=== PATIENT | female | born 1955 | race Caucasian/White ===

== ENCOUNTER 2017-08-31 13:03 | Inpatient (IN) | payer SELFPAY ==
[2017-08-31] VITALS (9 sets, daily range): BP systolic 115–179; BP diastolic 62–98
[~2017-08-31] VITALS: Ht 152.4 cm; Wt 60.0 kg
[~2017-08-31 13:03] MED LIST: AMLODIPINE5 MG PO; ATENOLOL50 MG PO; BACTRIM DS1 TAB PO; CELEXA40 M1 PO; CELEXA40 MG OR; CIPROFLOXACN500 MG PO; COMBIVENT IN; DOXYCYCL HYC100 MG PO; FIORICET PO; FLAGYL500 MG OR; HYDROCHLOROT12.5 MG; KLONOPIN1 MG PO; LEVOTHYROXIN100 MCG PO; LISINOPRIL20 MG PO; MEDDOSEPAK PO; NORVASC5 MG PO; NYSTATIN100000 M1 OR; PHENERGAN SUPP RE; PROVENTIL HFA INH; PROZAC40 MG PO; PYRIDIUM200 MG PO; SYNTHROID88 MCG OR; TOPROL XL25 M1; TOPROL XL25 MG OR; TOVIAZ8 MG PO; VESICARE5 MG PO; ZOFRAN ODT4 MG PO
--- NOTE | 2017-08-31 13:05 | NUR ---
PT TO ROOM 13 VIA EMS STRETCHER.
--- NOTE | 2017-08-31 13:30 | NUR ---
PT A&O X 3.
--- NOTE | 2017-08-31 13:30 | NUR ---
INRODUCED SELF TO PT. PT REPORTS WEAKNESS FOR 1 DAY AND A FALL LAST NIGHT. PT REPORTS HEAD PAIN. PERRLA. PT MAEW. LABS COLLECTED, EKG COMPLETED AND PT AWARE OF PROBABLE PLAN OF CARE. WILL CONTINUE TO MONITOR.
[2017-08-31 13:46] LABS: HEMATOCRIT 37.4 % (37.0-47.0); HEMOGLOBIN 13.3 g/dl (12.0-16.0); IMMATURE GRANULOCYTES 2.6 % (0.0-1.0); MEAN CELL VOLUME 83.9 fL CALC (80.0-100.0); MEAN CORPUSCULAR HGB 29.8 pG CALC (26.0-32.0); MEAN CORPUSCULAR HGB CONC 35.6 g/L CALC (32.0-36.0); NEUT# 10.84 thou/uL (2.00-7.15); RED BLOOD COUNT 4.46 mill/uL (4.20-5.60); RED CELL DISTRI WIDTH 12.3 % (11.5-15.5)
--- NOTE | 2017-08-31 14:00 | NUR ---
BED UP TO BEDSIDE COMMODE TO PROVIDE URINE SAMPLE. PT UNSTEADY ON HER FEET AND REPORTS "I JUST DO NOT FEEL RIGHT, FOGGY FEELING". PT PROVIDED URINE SAMPLE AND BACK TO STRETCHER. PT AWARE OF PENDING RESULTS AND WAIT TIME. CALL PRUITT WITHIN REACH.
[2017-08-31 14:02] LABS: ALBUMIN 4.7 g/dL (3.2-5.0); ALKALINE PHOSPHATASE 80 u/l (38-126); BILIRUBIN, TOTAL 0.7 mg/dL (0.0-1.4); BUN 5 mg/dL (8-23); BUN/CREATININE RATIO 10 (12-20 (CALC)); CARBON DIOXIDE 21 mmol/l (22-30); CHLORIDE 85 mmol/l (95-108); CREATININE 0.5 mg/dL (0.5-1.0); ETHYL ALCOHOL 0 mg/dl (0-30); GFR > 60 ML/MIN (>=60 (CALC)); GFR FOR AFR.AMER. > 60 ML/MIN (>=60 (CALC)); SGOT/AST 24 u/l (9-36); SGPT/ALT 28 u/l (11-66); TOTAL PROTEIN 7.6 g/dL (6.3-8.2)
[2017-08-31 14:03] LABS: ANION GAP 16 (6-22 (CALC))
[2017-08-31 14:04] LABS: SODIUM 119 mmol/l (137-146)
[2017-08-31] MEDS ORDERED: DESYREL50 MG PO (14:07)
[2017-08-31] MEDS ORDERED: PROZAC10 MG PO (14:08)
[2017-08-31 14:13] LABS: MYOGLOBIN 65 ng/mL (0 - 62)
[2017-08-31] MEDS ORDERED: ELFOLATE7.5 MG PO (14:20)
[2017-08-31 14:29] LABS: URINE BILIRUBIN - DIPSTICK NEGATIVE (NEGATIVE); URINE BLOOD DIPSTICK SMALL (NEGATIVE); URINE COLOR YELLOW; URINE GLUCOSE - DIPSTICK NEGATIVE (NEGATIVE); URINE KETONE 15 mg/dL (NEGATIVE); URINE LEUK ESTERASE NEGATIVE (NEGATIVE); URINE NITRITE - DIPSTICK NEGATIVE (Negative); URINE PROTEIN - DIPSTICK 100 mg/dL (NEG-TRACE); URINE UROBILINOGEN - DIPSTICK 0.2 E.U./dL (0.2)
[2017-08-31 14:32] LABS: URINE CLARITY CLEAR
[2017-08-31 14:33] LABS: BARBITURATES NEGATIVE (NEGATIVE); COCAINE NEGATIVE (NEGATIVE); METHADONE NEGATIVE (NEGATIVE); OXCYCODONE NEGATIVE (NEGATIVE); TETRAHYDROCANNABIONOL NEGATIVE (NEGATIVE); TRICYLIC ANTIDEPRESSANTS NEGATIVE (NEGATIVE)
[2017-08-31 14:43] LABS: URINE SQUAMOUS EPITHELIAL CELL FEW EPI/hpf (0-FEW); URINE WBC 0-2 WBC/hpf (0-5)
--- NOTE | 2017-08-31 14:45 | NUR ---
PT RESTING IN STRETCHER AND REPORTS CONTINUED 8/10 HEAD PAIN. PT REQUESTING SOMETHING FOR THE PAIN, MD NOTIFIED AND AWAITING NEW ORDERS.
--- NOTE | 2017-08-31 15:30 | NUR ---
PT MEDICATED WITH 650 MG OF TYLENOL FOR HEADACHE. PT AWARE OF NEED FOR ADMISSION, MD AT BEDSIDE TO DISCUSS RESULTS.
--- NOTE | 2017-08-31 16:00 | NUR ---
PT A&O X 3 AND REPORTS HEADACHE IS NOW 6/10, RESP EVEN AND UNLABORED. PT SHOWING NSR ON THE MONITOR AT 70 BPM. WILL CONTINUE TO MONITOR.
--- NOTE | 2017-08-31 16:00 | NUR ---
CONSENT OBTAINED FORM CENTRAL LINE PLACEMENT. PT AWARE OF PLAN FOR ADMISSION. PT DENIES ANY NEEDS AT THIS TIME. WILL CONTINUE TO MONITOR.
--- NOTE | 2017-08-31 16:20 | NUR ---
MD AT BEDSIDE AND TRIPLE LUMEN CENTRAL LINE PLACED. PT TOLERATED WELL.
--- NOTE | 2017-08-31 16:47 | NUR ---
REPORT CALLED TO JULIA GODDARD.
--- NOTE | 2017-08-31 16:55 | NUR ---
Admission Note Report Given to: JULIA CEJA Transported by: Wheelchair X Stretcher Transported with: X Nurse X Transporter X Patent IV O2 X Monorail Car Operator
--- NOTE | 2017-08-31 16:58 | NUR ---
female pt received to ICU bed 1 via stretcher in stable condition; ambulatory with weak/unsteady gait; weight obtained via bed scale; admission assessment completed at this time; pt c/c "I fell last night and today"; pt denies any injuries from fall but admits to hitting back of head; alert and oriented; admits to headache rating 6/10; no n/v/dizziness reported; resp even and unlabored; lungs clear; skin color wnl; ra; hr reg; strong pulses; no edema noted; sr on monitor; bilat knee high medardo hose placed; abd soft with bs present; no bm noted per senior grant writer; admits to voiding without pain or burning; no urine to inspect at this time; #18 in rac saline locked; RIJ TLC patent with 3% Na infusing at 35cc/hr; no redness or edema noted at site; plan of care explained; call light within reach; will continue to monitor
--- NOTE | 2017-08-31 18:05 | NUR ---
awake conversing on cell phone; no distress noted; pt offers no complaints; sr on monitor; iv patent; 3% Na infusing at 35cc/hr; no redness or edema noted at site; bed in loweszst position; call light within reach
[2017-08-31 18:25] LABS: POTASSIUM 3.5 mmol/l (3.5-5.1)
--- NOTE | 2017-08-31 18:45 | NUR ---
Dr Castillo notified of serum Na increase from 119mEq/L to 123mEq/L; orders received and on chart
--- NOTE | 2017-08-31 18:46 | NUR ---
3% saline decreased to 30cc/hr as per orders
--- NOTE | 2017-08-31 19:00 | NUR ---
REPORT FROM Juventino GONZALEZ RN. ASSUMED PT. CARE.
--- NOTE | 2017-08-31 20:05 | NUR ---
PT. AWAKE, ALERT, ORIENTED X3. BLOOD SPECIMENS OBTAINED FROM TRIPLE LUMEN IJ. PT. REMAINS ON 3% SALINE DRIP AT THIS TIME. URINE SPECIMEN OBTAINED AND SENT FOR RANDOM SODIUM LEVEL. CALL LIGHT REMAINS WITHIN REACH. PT. RESPS ARE EVEN AND UNLABORED. SKIN IS WARM AND DRY. C/O 7/10 PAIN TO HEAD AT THIS TIME. NORTH MEDICATE PER ORDERS. NO NEURO DEFICITS NOTED.
[2017-08-31 20:22] LABS: TSH, 3RD GENERATION 22.2 uIU/mL (0.47 - 4.68)
[2017-08-31 20:28] LABS: POTASSIUM 3.7 mmol/l (3.5-5.1)
--- NOTE | 2017-08-31 21:00 | NUR ---
PT. RESTING IN BED WITH EYES CLOSED. RESPS REMAIN EVEN AND UNLABORED. CALL LIGHT REMAINS WITHIN REACH. 3% SODIUM DRIP DECREASED TO 25 CC/HR AT THIS TIME.
--- NOTE | 2017-08-31 22:05 | NUR ---
PT. REMAINS RESTING WITH EYES CLOSED AND SNORING RESPIRATIONS. BLOOD SPECIMEN DRAWN AT THIS TIME FOR REPEAT CHEMISTRY. WILL CONTINUE TO MONITOR.
[2017-08-31 22:23] LABS: POTASSIUM 3.6 mmol/l (3.5-5.1)
--- NOTE | 2017-08-31 23:43 | NUR ---
PT. CONTINUES TO REST WITH EYES CLOSED IN NO DISTRESS. BP IMPROVED AT THIS TIME. CONTINUES WITH 3% SALINE DRIP INFUSING AT 25CC/HR PER PHYSICAN ORDERS. WILL CONTINUE TO MONITOR.
[2017-09-01] VITALS (18 sets, daily range): BP systolic 110–176; BP diastolic 54–86
--- NOTE | 2017-09-01 00:05 | NUR ---
PT. RESTING WITH SNORING RESPIRATIONS AT THIS TIME. EASILY AROUSABLE TO LIGHT VERBAL STIMULI. LAB SPECIMEN OBTAINED AT THIS TIME. CALL LIGHT REMAINS WITHIN REACH. DENIES COMPLAINTS. 3% SALINE DRIP CONTINUES AT 25CC/HR.
[2017-09-01 00:50] LABS: POTASSIUM 3.6 mmol/l (3.5-5.1)
--- NOTE | 2017-09-01 02:14 | NUR ---
PT. CONTINUES TO REST WITH EYES CLOSED AND SNORING RESPIRATIONS. REMAINS ROUSABLE TO LIGHT VERBAL STIMULI. 3% SALINE DRIP CONTINUES TO INFUSE TO RT. IJ CENTRAL LINE. DENIES COMPLAINTS OR NEEDS. RESPS REMAIN EVEN AND UNLABORED. SKIN REMAINS WARM AND DRY. CALL LIGHT REMAINS WITHIN REACH. WILL CONTINUE TO MONITOR.
[2017-09-01 02:45] LABS: POTASSIUM 3.5 mmol/l (3.5-5.1)
--- NOTE | 2017-09-01 03:15 | NUR ---
3% SALINE DRIP DISCONTINUED AT THIS TIME PER PHYSICIAN ORDER PT. SODIUM IS NOW 125. WILL CHANGE FLUIDS TO KVO PER ORDERS. PT. CONTINUES TO REST WITH EYES CLOSED. DENIES COMPLAINT OR CONCERNS. TRIPLE LUMEN FLUSHED AT THIS TIME. CALL LIGHT REMAINS WITHIN REACH.
--- NOTE | 2017-09-01 04:40 | NUR ---
AM LABS DRAWN AT THIS TIME. PT. REMAINS ALERT AND ORIENTED X 3. REMAINS EASILY AROUSABLE. CALL LIGHT REMAINS WITHIN REACH. PT. MEDICATED WITH TYLENOL FOR 01/03 HEADACHE. ASSISTED TO BEDSIDE COMMODE AT THIS TIME. GAIT MUCH IMPROVED. PT. REMAINS SINUS ON THE MONITOR.
--- NOTE | 2017-09-01 06:05 | NUR ---
PT. RESTING ON LT. SIDE AT THIS TIME WITH SNORING RESPIRATIONS. REMAINS SINUS ON THE MONITOR. NO DISTRESS NOTED. REMAINS EASILY AROUSABLE. CALL LIGHT REMAINS WITHIN REACH. WILL CONTINUE TO MONITOR.
[2017-09-01 06:11] LABS: HEMATOCRIT 34.9 % (37.0-47.0); MEAN CELL VOLUME 86.2 fL CALC (80.0-100.0); MEAN CORPUSCULAR HGB 29.6 pG CALC (26.0-32.0); MEAN CORPUSCULAR HGB CONC 34.4 g/L CALC (32.0-36.0); RED BLOOD COUNT 4.05 mill/uL (4.20-5.60); RED CELL DISTRI WIDTH 12.7 % (11.5-15.5)
[2017-09-01 06:23] LABS: ANION GAP 13 (6-22 (CALC)); BUN 13 mg/dL (8-23); BUN/CREATININE RATIO 18 (12-20 (CALC)); CALCULATED LDLCHOLESTEROL 80 mg/dL (62-129 (CALC)); CARBON DIOXIDE 21 mmol/l (22-30); CHLORIDE 96 mmol/l (95-108); CREATININE 0.8 mg/dL (0.5-1.0); GFR > 60 ML/MIN (>=60 (CALC)); GFR FOR AFR.AMER. > 60 ML/MIN (>=60 (CALC)); HDL CHOLESTEROL 90 mg/dL (>=40); MAGNESIUM 2.3 mg/dL (1.6-2.3); POTASSIUM 3.9 mmol/l (3.5-5.1); SODIUM 126 mmol/l (137-146); TOTAL CHOLESTEROL 183 mg/dl (0-199); TOTAL TRIGLYCERIDES 65 mg/dl (30-149); VLDL CHOLESTROL 13 mg/dl (1-41 (CALC))
--- NOTE | 2017-09-01 07:34 | NUR ---
pt noted asleep; easily aroused; offers no complaints; no distress noted; assessment completed at this time; pt alert and oriented; denies pain/ headache at this time; no n/v noted; resp even and unlabored; lungs clear bilat; skin color wnl; ra; hr reg; strong pulses; no edema noted; sr on monitor; bilat medardo hose intact; abd soft with bs present; no bm noted per check writer; no urine to inspect at this time; bsc; #18 flushed and patent to rac; TLC to RIJ flushed and patent; blood return noted from all lumens; dressings cdi; no redness or edema noted at sites; pt admits to feeling better/ increased strength; plan of care/ am meds explained; call light within reach; will continue to monitor
--- NOTE | 2017-09-01 10:00 | NUR ---
pt awake in bed; no distress noted; Dr Castillo at bedside to discuss plan of care; iv intact; sr on monitor; pt offers no complaints; call light within reach; will continue to monitor closely
--- NOTE | 2017-09-01 11:51 | NUR ---
awake; conversing with visitor; no distress noted; pt offers no complaints; iv's intact; sr on monitor; pt deny needs at present; call light within reach; will continue to monitor
--- NOTE | 2017-09-01 14:12 | NUR ---
awake; conversing with family; no distress noted; offers no complaints; sr on monitor; call light within reach; will continue to monitor
--- NOTE | 2017-09-01 16:35 | NUR ---
pt awake in bed; conversing with family; no distress noted; offers complaints of headache rating 7/10; admits tylenol only brings headache down to 5/10; assist to bsc; vss; sr on monitor; will notifiy SAFETY INVESTIGATOR for stronger pain meds; #18 removed from rac with catheter tip intact; TLC flushed and patent; call light within reach; will continue to monitor
--- NOTE | 2017-09-01 18:26 | NUR ---
awake conversing on cell phone; no distress noted; pt admits to pain relief; iv intact; sr on monitor; deny needs; bed in lowest position; call light within reach
--- NOTE | 2017-09-01 19:00 | NUR ---
REPORT FROM Juventino GONZALEZ RN. ASSUMED PT. CARE.
--- NOTE | 2017-09-01 19:45 | NUR ---
PT. AWAKE, ALERT, ORIENTED X 3. SKIN WARM AND DRY. AFEBRILE. MAE. TORREZ. DENIES COMPLAINTS OTHER THAN 6/10 HEADACHE AT THIS TIME. WILL MEDICATE ORDERED. RESPS REMAIN EVEN AND UNLABORED. NO EDEMA NOTED. GOOD PULSES THROUGHOUT. CALL LIGHT REMAINS WITHIN REACH. WILL CONTINUE TO MONITOR.
--- NOTE | 2017-09-01 20:17 | NUR ---
PT. DOWN TO CT SCAN AT THIS TIME.
--- NOTE | 2017-09-01 20:42 | NUR ---
RETURNED FROM CT. UNEVENTFUL TRANSPORT. PT. REMAINS STABLE, SINUS RHYTHM. NO RESP DISTRESS. AMBULATORY TO RESTROOM AT THIS TIME WITH MILDLY UNSTEADY GAIT, NO ASSIST. AMBULATORY BACK TO BED. REPORTS 2/10 HEADACHE AT THIS TIME. PT. UPDATED ON PLAN OF CARE. WILL CONTINUE TO MONITOR.
--- NOTE | 2017-09-01 21:55 | NUR ---
PT. RESTING IN BED AT THIS TIME. AWAKE, WATCHING TELEVISION. STATES HER HEADACHE REMAINS CONTROLLED AT 2/10. DENIES OTHER COMPLAINTS. WILL CONTINUE TO MONITOR.
--- NOTE | 2017-09-01 23:20 | NUR ---
PT. AMBULATORY WITH STEADY GAIT TO RESTROOM. URINE SPECIMEN OBTAINED AND SENT TO LAB FOR TESTING. PT. DENIES COMPLAINTS. LIGHTS DIMMED FOR COMFORT. PT. DENIES OTHER NEEDS AT THIS TIME.
[2017-09-02] VITALS (7 sets, daily range): BP systolic 119–159; BP diastolic 66–90
--- NOTE | 2017-09-02 01:15 | NUR ---
PT. RESTING IN BED IN NO DISTRESS. VITALS REMAIN STABLE. RESPS REMAIN EVEN AND UNLABORED. SKIN WARM AND DRY. CALL LIGHT REMAINS WITHIN REACH. WILL CONTINUE TO MONITOR.
--- NOTE | 2017-09-02 03:05 | NUR ---
PT. RESTING ON LT. SIDE WITH EYES CLOSED AND SNORING RESPIRATIONS. VITALS REMAIN STABLE. PT. REMAINS SINUS-SINUS JODY. PT. VOICES NO COMPLAINTS OR CONCERNS. CALL LIGHT REMAINS WITHIN REACH.
--- NOTE | 2017-09-02 05:02 | NUR ---
THIS RN TO BEDSIDE AT THIS TIME. LAB SPECIMEN DRAWN AND TRIPLE LUMEN FLUSHED. PT. AMBULATORY WITH STEADY GAIT TO AND FROM RESTROOM. NO ASSIST FROM STAFF OTHER THAT TO UNHOOK PATIENT FROM MONITOR AND REPLACE. PT. STATES WITH 4/10 HEADACHE AT THIS TIME. PT. CONTINUES WITH SCANT OOZE TO POSTERIOR HEAD FROM AREA OF POSTERIOR HEAD HEMATOMA FROM FALL AT HOME PRIOR TO ARRIVAL AT ED AND ADMISSION TO HOSPITAL. MINOR BRUISING NOTED INFERIOR TO LT. EAR. PT. STATES WITH MILD DISCOMFORT TO AREA OF POSTERIOR HEAD. PT. REMAINS EASILY AROUSABLE, ALERT, ORIENTED X 3. SKIN REAMAINS WARM AND DRY. PT. REMAINS STABLE ON THE MONITOR. CALL LIGHT REMAINS WITHIN REACH. WILL CONTINUE TO MONITOR.
[2017-09-02 05:36] LABS: HEMOGLOBIN 11.5 g/dl (12.0-16.0); IMMATURE GRANULOCYTES 0.9 % (0.0-1.0); MEAN CELL VOLUME 88.3 fL CALC (80.0-100.0); MEAN CORPUSCULAR HGB 29.9 pG CALC (26.0-32.0); MEAN CORPUSCULAR HGB CONC 33.8 g/L CALC (32.0-36.0); NEUT# 4.46 thou/uL (2.00-7.15); RED BLOOD COUNT 3.85 mill/uL (4.20-5.60); RED CELL DISTRI WIDTH 13.1 % (11.5-15.5)
[2017-09-02 05:46] LABS: ANION GAP 12 (6-22 (CALC)); BUN 12 mg/dL (8-23); BUN/CREATININE RATIO 19 (12-20 (CALC)); CARBON DIOXIDE 22 mmol/l (22-30); CHLORIDE 102 mmol/l (95-108); CREATININE 0.7 mg/dL (0.5-1.0); GFR > 60 ML/MIN (>=60 (CALC)); GFR FOR AFR.AMER. > 60 ML/MIN (>=60 (CALC)); POTASSIUM 3.6 mmol/l (3.5-5.1); SODIUM 132 mmol/l (137-146)
--- NOTE | 2017-09-02 05:59 | NUR ---
PT. UPDATED ON PLAN OF CARE. UPDATED ON MORNING LAB AND CT RESULTS. PT. VERBALIZES UNDERSTANDING OF NEED FOR MRI AND LIKELY FOLLOW UP CT SCANS. PT. STATES DECREASED LEVEL OF ANXIETY AFTER HEARING RESULTS OF SCAN. PT. REMAINS WITH INTERMITTENT COUGH. DENIES SPUTUM PRODUCTION. VSS. WILL CONTINUE TO MONITOR.
--- NOTE | 2017-09-02 07:25 | NUR ---
PT ALERT AND ORIENTED, RESTING IN BED, NO NEURO DEFICITS NOTED, AM ASSESSMENT COMPLETED, SEE INTERVENTIONS, SKIN WARM DRY AND INTACT, RIGHT IJ TLC NOTED WITH DRESSING CLEAN DRY AND INTACT, OFFERS NO NEW COMPLAINTS, AFEBRILE, VS STABLE, DENIES SYNCOPAL EPISODES SINCE ARRIVAL, COMFORT MEASURES PROVIDED, SAFETY MEASURES REINFORCED, CALL PRUITT WITHIN REACH, WILL CONTINUE TO MONITOR.
--- NOTE | 2017-09-02 07:40 | NUR ---
SET UP ASSIST PROVIDED FOR AM MEAL, CALL PRUITT WITHIN REACH
--- NOTE | 2017-09-02 08:20 | NUR ---
PT TO MRI VIA WHEELCAHIAR AFTER AMBULATING TO BATHROOM WITH STRONG STEADY GAIT, NO NEURO DEFICITS NOTED, CALL PRUITT WITHIN REACH
--- NOTE | 2017-09-02 09:40 | NUR ---
pt back from mri, tolerated without incident, call anne within reach.
--- NOTE | 2017-09-02 09:57 | NUR ---
takes am medications w/o incident, call anne within reach, will continue to monitor.
--- NOTE | 2017-09-02 11:22 | NUR ---
pt resting in bed, with eyes closed, no s/s of distress noted, call anne within reach. Will continue to monitor.
[2017-09-02] MEDS ORDERED: SYNTHROID25 MCG PO (11:58)
--- NOTE | 2017-09-02 12:10 | NUR ---
PT TOLERATED AFTERNOON MEAL WELL, AWARE OF PLANNED D/C MEDICATED WITH SYNTHROID ORDERED AND PT EDUCATED REGARDING REASON FOR ADMINISTRATION, EXPECTATIONS AND POSSIBLE SIDE EFFECTS, ALL QUESTIONS ANSWERERED, CALL PRUITT WITHIN REACH, WILL CONTINUE TO MONITOR.
--- NOTE | 2017-09-02 12:25 | NUR ---
R IJ TLC REMOVED INTACT PER PROTOCOL, PRESSURE HELD, PT INSTRUCTED TO LAY SUPINE FOR 30 MIN., NO BLEEDING NOTED, APPLIED GAUZE AND LARGE TRASNPARENT DRESSING, PT INSTRUCTED TO KEEP DRESSING CLEAN AND DRY AND MAY REMOVE AFTER 24 HRS, VERBALZIES UNDERSTANDING, CALL PRUITT WITHIN REACH.
--- NOTE | 2017-09-02 13:19 | NUR ---
D/C INSTRUCTIONS DISCUSSED WITH PATIENT, ALL QUESTIONS ANSWERED, PT PLACED CALL TO SON FOR TRANSPORT HOME. ALL MONITORING EQUIPMET REMOVED PT STATES SHE WASNT TO GET DRESSED, CALL PRUITT WITHIN REACH, P[T APPROPRIATE WITH STRONG STEADY GAIT
--- NOTE | 2017-09-02 13:35 | NUR ---
Discharge instructions given. Patient verbalizes understanding of same. Discharged in stable condition via Wheelchair to Home with family. All belongings sent with pt. SCRIPT SENT WIHT PATIENT WELL
== END 2017-09-02 13:35 | disposition home or self-care (01) | DRG 641 ==
LOC: ED 13:03 → ED-I 14:10 → ED 14:59 → ICU 15:00
PROVIDERS: Emergency Medicine; Nurse Practitioner Family; ADMIT Internal Medicine; ATTEND Internal Medicine
PROC: 02HV33Z Insertion of Infusion Device into Superior Vena Cava, Percutaneous Approach (ICD-10-PCS; principal; 2017-08-31)
PROC: 3E0234Z Introduction of Serum, Toxoid and Vaccine into Muscle, Percutaneous Approach (ICD-10-PCS; 2017-09-01)
DX: E87.1 Hypo-osmolality and hyponatremia (principal); I67.2 Cerebral atherosclerosis; E03.9 Hypothyroidism, unspecified; S00.03XA Contusion of scalp, initial encounter; J44.9 Chronic obstructive pulmonary disease, unspecified; I10 Essential (primary) hypertension; F32.9 Major depressive disorder, single episode, unspecified; F17.210 Nicotine dependence, cigarettes, uncomplicated; W19.XXXA Unspecified fall, initial encounter; F41.9 Anxiety disorder, unspecified; Z23 Encounter for immunization; Z86.73 Personal history of transient ischemic attack (TIA), and cerebral infarction without residual deficits
CPT/HCPCS: Q9967

== ENCOUNTER 2018-12-10 09:46 | Emergency (ER) | payer SELFPAY ==
[~2018-12-10] VITALS: Ht 152.4 cm; Wt 65.0 kg
[~2018-12-10 09:46] MED LIST changes: +DESYREL50 MG PO; +ELFOLATE7.5 MG PO; +PROZAC10 MG PO; +SYNTHROID25 MCG PO
[2018-12-10] MEDS ORDERED: LEXAPRO10 MG PO (10:04)
[2018-12-10] MEDS ORDERED: AMLODIPINE5 MG PO (10:05)
[2018-12-10] MEDS ORDERED: LISINOPRIL20 MG PO (10:05)
[2018-12-10] MEDS ORDERED: KLONOPIN0.5 M1 PO (10:06)
[2018-12-10] MEDS ORDERED: LEVO-T112 MCG PO (10:06)
[2018-12-10 10:45] LABS: IMMATURE GRANULOCYTES 0.6 % (0.0-5.0); MEAN CELL VOLUME 86.7 fL CALC (80.0-100.0); MEAN CORPUSCULAR HGB 28.1 pG CALC (26.0-32.0); MEAN CORPUSCULAR HGB CONC 32.4 g/L CALC (32.0-36.0); NEUT# 5.2 thou/uL (2.00-7.15); RED BLOOD COUNT 3.92 mill/uL (4.20-5.60); RED CELL DISTRI WIDTH 13.9 % (11.5-15.5)
[2018-12-10 11:00] LABS: ANION GAP 13 (6-22 (CALC)); BUN 13 mg/dL (8-23); BUN/CREATININE RATIO 18 (12-20 (CALC)); CARBON DIOXIDE 26 mmol/l (22-30); CHLORIDE 99 mmol/l (95-108); CREATININE 0.7 mg/dL (0.5-1.0); GFR > 60 ML/MIN (>=60 (CALC)); GFR FOR AFR.AMER. > 60 ML/MIN (>=60 (CALC)); POTASSIUM 4.1 mmol/l (3.5-5.1); SODIUM 133 mmol/l (137-146)
[2018-12-10 12:03] VITALS: BP 173/80
== END 2018-12-10 12:09 | disposition home or self-care (01) | DRG 149 ==
LOC: ED 09:46
PROVIDERS: Family Medicine
DX: R42 Dizziness and giddiness (principal); E03.9 Hypothyroidism, unspecified; I10 Essential (primary) hypertension; F17.210 Nicotine dependence, cigarettes, uncomplicated; Z86.73 Personal history of transient ischemic attack (TIA), and cerebral infarction without residual deficits

== ENCOUNTER 2019-06-06 11:06 | Inpatient (IN) | payer SELFPAY ==
[~2019-06-06] VITALS: Ht 152.4 cm; Wt 65.8 kg
[~2019-06-06 11:06] MED LIST changes: +KLONOPIN0.5 M1 PO; +LEVO-T112 MCG PO; +LEXAPRO10 MG PO
--- NOTE | 2019-06-06 11:22 | NUR ---
PT TO ROOM VIA WC FOR BEDSIDE TRIAGE
--- NOTE | 2019-06-06 11:39 | NUR ---
PT ALERT/ORIENTED X3, SATS REMAIN 98 %, STATES SHE HAS BEEN OUT OF HER MEDICATION FOR NEB MACHINE.
[2019-06-06 11:48] LABS: HEMATOCRIT 32.8 % (37.0-47.0); HEMOGLOBIN 10.6 g/dl (12.0-16.0); MEAN CELL VOLUME 83.2 fL CALC (80.0-100.0); MEAN CORPUSCULAR HGB 26.9 pG CALC (26.0-32.0); MEAN CORPUSCULAR HGB CONC 32.3 g/L CALC (32.0-36.0); NEUT# 6.32 thou/uL (2.00-7.15); RED BLOOD COUNT 3.94 mill/uL (4.20-5.60); RED CELL DISTRI WIDTH 13.4 % (11.5-15.5)
[2019-06-06 12:05] LABS: ANION GAP 16 (6-22 (CALC)); BUN 8 mg/dL (8-23); BUN/CREATININE RATIO 11 (12-20 (CALC)); CARBON DIOXIDE 20 mmol/l (22-30); CHLORIDE 97 mmol/l (95-108); CREATININE 0.7 mg/dL (0.5-1.0); GFR > 60 ML/MIN (>=60 (CALC)); GFR FOR AFR.AMER. > 60 ML/MIN (>=60 (CALC)); POTASSIUM 3.7 mmol/l (3.5-5.1); SODIUM 129 mmol/l (137-146)
--- NOTE | 2019-06-06 12:15 | NUR ---
PT STATES FEELING MUCH BETTER AFTER BREATHING TREATMENT AND MEDS.
--- NOTE | 2019-06-06 13:24 | NUR ---
PT RESTING QUIETLY ON STRETCHER, STATES CONTINUES TO BE SOB, GOT UP TO WALK TO BATHROOM AND SATS DROPPED TO 96
[2019-06-06] MEDS ORDERED: PROZAC20 MG PO (13:30)
[2019-06-06] MEDS ORDERED: NEXIUM20 MG PO (13:32)
--- NOTE | 2019-06-06 14:16 | NUR ---
PT DENIES ANY CHEST PAIN EXCEPT WITH INSPIRATION, OR HEAVY COUGHING
--- NOTE | 2019-06-06 14:19 | NUR ---
REPORT GIVEN TO MED SURG FOR CONTINUATION OF CARE.
--- NOTE | 2019-06-06 14:24 | NUR ---
Admission Note Report Given to: sbar printed to floor Transported by: x Wheelchair Stretcher Transported with: x Nurse Transporter x Patent IV O2 x Casing Finisher And Stuffer
--- NOTE | 2019-06-06 14:25 | NUR ---
PT TO [facility] ROOM 291 VIA WHEELCHAIR. ACCOMPANIE BY ER NURSE. PT ABLE TO AMBULATE FROM WHEELCHAIR TO BED. PT IS ALERT AND ORIENTED X3. ADMISSION ASSESSMENT COMPLETED AT THIS TIME. IV TO RAC DISLOGED. CATH TIP INTACT. NEW IV STARTED LEFT HAND. PT TOLERATED WELL. CALL LIGHT IN REACH. ORIENTED TO ROOM AND CALL LIGHT SYSTEM. WILL CONTINUE OT MONITOR
[2019-06-06 14:59] VITALS: BP 189/92
[2019-06-06 15:48] VITALS: BP 173/72
--- NOTE | 2019-06-06 16:00 | NUR ---
BINU CALLE AT BEDSIDE TO SEE PATIENT
[2019-06-06 18:58] VITALS: BP 143/74
--- NOTE | 2019-06-06 19:33 | NUR ---
PATIENT UP IN ROOM-STEADY ON HER FEET-TEARFUL AND ANXIOUS WITH DAUGHTER VISITING. PATIENT STATES THAT SHE IS HAVING SOME DRIBBLING WHEN GETTING UP TO VOID. DENIES ANY BURNING OR PAIN AT THIS TIME. PROVIDED WITH PERIPADS AND MESH UNDERGARMET. STATES THAT SHE DOES HAVE PROBLEMS WITH DEPRESSION AND ANXIETY AND TAKES KLONOPIN AT HOME. PATIENT MEDICATED WITH KLONOPIN 0.5MG PO ORDERED FOR ANXIETY. TELE MONITOR IN PLACE. SALINE LOCK TO LEFT HAND INTACT AND APPEARS HEALTHY AT THIS TIME. SAFETY PRECAUTIONS REINFORED. CALL LIGHT IN REACH. WILL CONT TO MONITOR.
--- NOTE | 2019-06-06 21:02 | NUR ---
PATIENT FEELING BETTER SINCE TAKING THE KLONOPIN EARLIER. RECIEVING NEB TREATMENT AT THIS TIME. TELE MONITOR IN PLACE. IVF NS PATENT AND INFUSING VIA LEFT HAND SITE AT 100CC/HR. SITE IS HEALTHY AT THIS TIME. MEDICATED WITH TRAZADONE ORDERED FOR SLEEP. NON-PRODUCTIVE COUGH NOTED. UPPER AIRWAY CONGESTION NOTED. SAFETY PRECAUTIONS REINFORCED. CALL LIGHT IN REACH. WILL CONT TO MONITOR.
--- NOTE | 2019-06-07 | NUR ---
PATIENT APPEARS SLEEPING WITH EYES CLOSED. RESP ARE EVEN AND UNLABORED. TELE MONITOR IN PLACE. IVF PATENT AND INFUSING VIA LEFT HAND SITE. CALL LIGHT IN REACH. WILL CONT TO MONITOR.
[2019-06-07 01:01] VITALS: BP 142/81
[2019-06-07 04:47] VITALS: BP 159/84
--- NOTE | 2019-06-07 05:32 | NUR ---
PATIENT RESTING IN BED AT THIS TIME WITH NO COMPLAINTS AT THIS TIME. TELE MONITORINPLACE. IVF PATENTANDINFUSING AT 100CC/HR VIA LEFT HAND SITE. SITE REMAINS HEALTHY AT THIS TIME. VOIDING QS IN BR. SAFETY PRECAUTIONS REINFORCED. CALL LIGHT IN REACH. WILL CONT TO MONITOR.
[2019-06-07 06:11] LABS: HEMATOCRIT 31.4 % (37.0-47.0); HEMOGLOBIN 10.4 g/dl (12.0-16.0); IMMATURE GRANULOCYTES 0.7 % (0.0-5.0); MEAN CELL VOLUME 82.6 fL CALC (80.0-100.0); MEAN CORPUSCULAR HGB 27.4 pG CALC (26.0-32.0); MEAN CORPUSCULAR HGB CONC 33.1 g/L CALC (32.0-36.0); NEUT# 9.28 thou/uL (2.00-7.15); RED BLOOD COUNT 3.8 mill/uL (4.20-5.60); RED CELL DISTRI WIDTH 13.5 % (11.5-15.5)
[2019-06-07 06:23] LABS: ANION GAP 13 (6-22 (CALC)); BUN 7 mg/dL (8-23); BUN/CREATININE RATIO 13 (12-20 (CALC)); CARBON DIOXIDE 20 mmol/l (22-30); CHLORIDE 103 mmol/l (95-108); CREATININE 0.6 mg/dL (0.5-1.0); GFR > 60 ML/MIN (>=60 (CALC)); GFR FOR AFR.AMER. > 60 ML/MIN (>=60 (CALC)); SODIUM 133 mmol/l (137-146)
[2019-06-07 07:38] VITALS: BP 147/79
--- NOTE | 2019-06-07 08:00 | NUR ---
REPORT WAS RECEIVED FROM ALMA. ASSESSMENT DONE. PT IS A&O X3. TELE IN PLACE. PT DENIES PAIN AT THIS TIME. IVF INFUSING WELL. PT HAS A DRY COUGH. RESPS EVEN AND UNLABORED. PT DENIES ANY NEEDS AT THIS TIME. CALL LIGHT IN REACH.
[2019-06-07 11:25] VITALS: BP 135/66
[2019-06-07] MEDS ORDERED: NEXIUM 24HR20 MG PO (12:00)
[2019-06-07] MEDS ORDERED: CLONAZEPAM1 M1 PO (12:01)
[2019-06-07] MEDS ORDERED: CLONAZEPAM0.5 M1 PO (12:02)
--- NOTE | 2019-06-07 12:05 | NUR ---
PT IS EATING HER LUNCH WITH NO S/S DISTRESS NOTED. PT IS ALSO VISITING HER FAMLIY IN ROOM. PT DENIES ANY NEEDS AT THIS TIME. CALL LIGHT IN REACH.
[2019-06-07] MEDS ORDERED: PREDNISONE10 MG PO (12:45)
[2019-06-07] MEDS ORDERED: LEVAQUIN750 MG PO (12:45)
[2019-06-07] MEDS ORDERED: PROVENTIL0.083 % IN (12:45)
[2019-06-07] MEDS ORDERED: SPIRIVA RE2.5 MCG/AC IN (12:45)
--- NOTE | 2019-06-07 14:41 | NUR ---
Discharge instructions given. Patient verbalizes understanding of same. Discharged in stable condition via Wheelchair to Home with family. All belongings sent with pt.
== END 2019-06-07 14:41 | disposition home or self-care (01) | DRG 191 ==
LOC: ED 11:06 → ED-I 12:33 → ED 12:46 → MS2 12:47
PROVIDERS: Family Medicine; Nurse Practitioner Family; ADMIT Internal Medicine; ATTEND Internal Medicine
DX: J44.1 Chronic obstructive pulmonary disease with (acute) exacerbation (principal); E87.1 Hypo-osmolality and hyponatremia; R07.89 Other chest pain; I10 Essential (primary) hypertension; E03.9 Hypothyroidism, unspecified; F32.9 Major depressive disorder, single episode, unspecified; K21.9 Gastro-esophageal reflux disease without esophagitis; F41.9 Anxiety disorder, unspecified; F17.210 Nicotine dependence, cigarettes, uncomplicated; T43.205A Adverse effect of unspecified antidepressants, initial encounter; Z86.73 Personal history of transient ischemic attack (TIA), and cerebral infarction without residual deficits; Z88.0 Allergy status to penicillin

== ENCOUNTER 2019-11-09 | Emergency (ER) | payer SELFPAY ==
[~2019-11-09] MED LIST changes: +CLONAZEPAM0.5 M1 PO; +CLONAZEPAM1 M1 PO; +LEVAQUIN750 MG PO; +NEXIUM 24HR20 MG PO; +NEXIUM20 MG PO; +PREDNISONE10 MG PO; +PROVENTIL0.083 % IN; +PROZAC20 MG PO; +SPIRIVA RE2.5 MCG/AC IN
[2019-11-09] MEDS ORDERED: SYMBICORT1 AE1 IN (18:13)
[2019-11-09 19:04] LABS: HEMATOCRIT 27.3 % (37.0-47.0); HEMOGLOBIN 8.6 g/dl (12.0-16.0); IMMATURE GRANULOCYTES 1.2 % (0.0-5.0); MEAN CELL VOLUME 78.2 fL CALC (80.0-100.0); MEAN CORPUSCULAR HGB 24.6 pG CALC (26.0-32.0); MEAN CORPUSCULAR HGB CONC 31.5 g/dL CAL (32.0-36.0); NEUT# 5.99 thou/uL (2.00-7.15); RED BLOOD COUNT 3.49 mill/uL (4.20-5.60); RED CELL DISTRI WIDTH 14.9 % (11.5-15.5)
[2019-11-09 19:37] LABS: ANION GAP 10 (6-22 (CALC)); BUN 12 mg/dL (8-23); BUN/CREATININE RATIO 17 (12-20 (CALC)); CHLORIDE 97 mmol/l (95-108); CREATININE 0.7 mg/dL (0.5-1.0); GFR > 60 ML/MIN (>=60 (CALC)); GFR FOR AFR.AMER. > 60 ML/MIN (>=60 (CALC)); POTASSIUM 3.8 mmol/l (3.5-5.1); SODIUM 130 mmol/l (137-146)
[2019-11-09 19:39] LABS: CARBON DIOXIDE 27 mmol/l (22-30)
--- NOTE | 2019-11-12 15:48 | NUR ---
Call made to [facility] [address] [phone], spoke with Amalia, patient's nurse Sariah was in a room but would let her know when fax came through. Faxed results to [phone] with confirmation of receipt; called Amalia to confirm results were received.
== END 2019-11-09 20:35 | disposition short-term general hospital (02) | DRG 916 ==
PROVIDERS: Family Medicine
PROC: 0BH17EZ Insertion of Endotracheal Airway into Trachea, Via Natural or Artificial Opening (ICD-10-PCS; principal; 2019-11-09)
PROC: 5A1935Z Respiratory Ventilation, Less than 24 Consecutive Hours (ICD-10-PCS; 2019-11-09)
PROC: 05HM33Z Insertion of Infusion Device into Right Internal Jugular Vein, Percutaneous Approach (ICD-10-PCS; 2019-11-09)
PROC: 0T9B70Z Drainage of Bladder with Drainage Device, Via Natural or Artificial Opening (ICD-10-PCS; 2019-11-09)
DX: T78.3XXA Angioneurotic edema, initial encounter (principal); R94.31 Abnormal electrocardiogram [ECG] [EKG]; I10 Essential (primary) hypertension; E03.9 Hypothyroidism, unspecified; J45.909 Unspecified asthma, uncomplicated; F17.200 Nicotine dependence, unspecified, uncomplicated; Z86.73 Personal history of transient ischemic attack (TIA), and cerebral infarction without residual deficits; Z20.828 Contact with and (suspected) exposure to other viral communicable diseases

== ENCOUNTER 2019-12-08 | Emergency (ER) | payer SELFPAY ==
[~2019-12-08] MED LIST changes: +SYMBICORT1 AE1 IN
[2019-12-08 10:18] LABS: HEMOGLOBIN 9.4 g/dl (12.0-16.0); IMMATURE GRANULOCYTES 0.8 % (0.0-5.0); MEAN CELL VOLUME 82.2 fL CALC (80.0-100.0); MEAN CORPUSCULAR HGB 25.8 pG CALC (26.0-32.0); MEAN CORPUSCULAR HGB CONC 31.3 g/dL CAL (32.0-36.0); NEUT# 7.88 thou/uL (2.00-7.15); RED BLOOD COUNT 3.65 mill/uL (4.20-5.60); RED CELL DISTRI WIDTH 17.5 % (11.5-15.5)
[2019-12-08] MEDS ORDERED: HYDRALAZINE10 MG PO (10:34)
[2019-12-08] MEDS ORDERED: COREG25 MG PO (10:34)
[2019-12-08] MEDS ORDERED: ALDACTONE25 MG PO (10:35)
[2019-12-08] MEDS ORDERED: ISOSORB DIN30 MG PO (10:35)
[2019-12-08] MEDS ORDERED: TRAZODONE100 MG PO (10:36)
[2019-12-08] MEDS ORDERED: NORVASC5 M1 PO (10:36)
[2019-12-08 10:38] LABS: ACT PARTIAL THROMBO TIME 24.5 SECONDS (20.0-32.5); ALBUMIN 3.8 g/dL (3.2-5.0); ALKALINE PHOSPHATASE 62 u/l (38-126); BUN 13 mg/dL (8-23); BUN/CREATININE RATIO 12 (12-20 (CALC)); CARBON DIOXIDE 25 mmol/l (22-30); CHLORIDE 94 mmol/l (95-108); CREATININE 1.1 mg/dL (0.5-1.0); GFR 50 ML/MIN (>=60 (CALC)); GFR FOR AFR.AMER. > 60 ML/MIN (>=60 (CALC)); PROTHROMBIN TIME 10.2 SECONDS (9.0-12.5); SGOT/AST 18 u/l (9-36); SODIUM 126 mmol/l (137-146); TOTAL PROTEIN 6.5 g/dL (6.3-8.2)
[2019-12-08] MEDS ORDERED: VISTARIL 50MG C50 M1 PO (10:38)
[2019-12-08 10:44] LABS: ANION GAP 12 (6-22 (CALC)); BILIRUBIN, TOTAL 0.3 mg/dL (0.0-1.4); POTASSIUM 5.3 mmol/l (3.5-5.1)
== END 2019-12-08 11:00 | disposition short-term general hospital (02) | DRG 311 ==
PROVIDERS: Family Medicine
DX: I20.0 Unstable angina (principal); I10 Essential (primary) hypertension; E03.9 Hypothyroidism, unspecified; F17.200 Nicotine dependence, unspecified, uncomplicated; Z86.73 Personal history of transient ischemic attack (TIA), and cerebral infarction without residual deficits

== ENCOUNTER 2020-02-15 22:37 | Emergency (ER) | payer SELFPAY ==
[~2020-02-15] VITALS: Ht 152.4 cm; Wt 68.1 kg
[~2020-02-15 22:37] MED LIST changes: +ALDACTONE25 MG PO; +COREG25 MG PO; +HYDRALAZINE10 MG PO; +ISOSORB DIN30 MG PO; +NORVASC5 M1 PO; +TRAZODONE100 MG PO; +VISTARIL 50MG C50 M1 PO
[2020-02-15] MEDS ORDERED: LEVOTHYROXIN112 MC1 PO (23:11)
[2020-02-15] MEDS ORDERED: ASPIRINCHW 81MG PO (23:12)
[2020-02-15] MEDS ORDERED: FLUOXETINE HCL40 MG PO (23:12)
[2020-02-15] MEDS ORDERED: NEXIUM40 M1 PO (23:13)
[2020-02-15] MEDS ORDERED: HYDROCO/APAP1 TA9 PO (23:44)
[2020-02-16] VITALS: BP 131/70
== END 2020-02-16 00:25 | disposition home or self-care (01) | DRG 563 ==
LOC: ED 22:37
PROC: 2W3CX1Z Immobilization of Right Lower Arm using Splint (ICD-10-PCS; principal; 2020-02-15)
DX: S52.501A Unspecified fracture of the lower end of right radius, initial encounter for closed fracture (principal); S52.601A Unspecified fracture of lower end of right ulna, initial encounter for closed fracture; I11.0 Hypertensive heart disease with heart failure; I50.9 Heart failure, unspecified; I42.9 Cardiomyopathy, unspecified; F17.200 Nicotine dependence, unspecified, uncomplicated; W01.0XXA Fall on same level from slipping, tripping and stumbling without subsequent striking against object, initial encounter; Y92.009 Unspecified place in unspecified non-institutional (private) residence as the place of occurrence of the external cause; Z86.73 Personal history of transient ischemic attack (TIA), and cerebral infarction without residual deficits

== ENCOUNTER 2020-09-28 10:45 | Emergency (ER) | payer BC ==
[~2020-09-28] VITALS: Ht 152.4 cm; Wt 68.0 kg
[~2020-09-28 10:45] MED LIST changes: +ASPIRINCHW 81MG PO; +FLUOXETINE HCL40 MG PO; +HYDROCO/APAP1 TA9 PO; +LEVOTHYROXIN112 MC1 PO; +NEXIUM40 M1 PO
[2020-09-28] MEDS ORDERED: ISOSORBIDE MONO30 MG PO (11:09)
[2020-09-28] MEDS ORDERED: TRAZODONE100 MG PO (11:10)
[2020-09-28] MEDS ORDERED: CLONAZEPAM0.5 M1 PO (11:11)
[2020-09-28] MEDS ORDERED: CYCLOBENZAPRINE10 MG PO (12:14)
[2020-09-28] MEDS ORDERED: NAPROXEN500 MG PO (12:14)
[2020-09-28 12:16] LABS: URINE BILIRUBIN - DIPSTICK NEGATIVE (NEGATIVE); URINE BLOOD DIPSTICK NEGATIVE (NEGATIVE); URINE COLOR YELLOW; URINE GLUCOSE - DIPSTICK NEGATIVE (NEGATIVE); URINE KETONE NEGATIVE (NEGATIVE); URINE LEUK ESTERASE NEGATIVE (NEGATIVE); URINE NITRITE - DIPSTICK NEGATIVE (Negative); URINE PH 7.5 (4.5-8.0); URINE PROTEIN - DIPSTICK NEGATIVE (NEG-TRACE); URINE UROBILINOGEN - DIPSTICK 0.2 E.U./dL (0.2)
[2020-09-28 12:34] VITALS: BP 139/87
== END 2020-09-28 12:34 | disposition home or self-care (01) | DRG 552 ==
LOC: ED 10:45
PROVIDERS: Emergency Medicine
DX: M47.816 Spondylosis without myelopathy or radiculopathy, lumbar region (principal); I11.0 Hypertensive heart disease with heart failure; I50.9 Heart failure, unspecified; E03.9 Hypothyroidism, unspecified; J45.909 Unspecified asthma, uncomplicated; I42.9 Cardiomyopathy, unspecified; F32.9 Major depressive disorder, single episode, unspecified; F17.200 Nicotine dependence, unspecified, uncomplicated; Z86.73 Personal history of transient ischemic attack (TIA), and cerebral infarction without residual deficits

== ENCOUNTER 2020-10-03 12:28 | Observation (INO) | payer BC ==
[~2020-10-03] VITALS: Ht 152.4 cm; Wt 69.6 kg
[~2020-10-03 12:28] MED LIST changes: +CYCLOBENZAPRINE10 MG PO; +ISOSORBIDE MONO30 MG PO; +NAPROXEN500 MG PO
--- NOTE | 2020-10-03 12:30 | NUR ---
TO ROOM VIA WHEELCHAIR.
--- NOTE | 2020-10-03 12:45 | NUR ---
PT REPORTS HAVING TAKEN THIS LIST OF MEDICATIONS THE FIRST TIME TODAY AT 0530 THEN ACCIDENTALLY TAKEN AGAIN AT 1130. CARVEDILOL 6.25 MG, ISOSORBIDE 30MG, LEVOTHYROXINE 112 MCG, PROZAC 80MG, AMLODIPINE 10MG.
--- NOTE | 2020-10-03 13:09 | NUR ---
POISON CONTROL NOTIFIED, SPOKE WITH TROY, HE STATES TO MONITER PT FOR 2 HOURS WITH BLOOD PRESSURE, AND IF SHE LIKES HE CAN GIVE HER A CALL A COUPLE OF TIMES THIS AFTERNOON FROM HOME.
[2020-10-03 13:31] LABS: HEMATOCRIT 32.3 % (37.0-47.0); HEMOGLOBIN 10.6 g/dl (12.0-16.0); IMMATURE GRANULOCYTES 0.8 % (0.0-5.0); MEAN CELL VOLUME 85.2 fL CALC (80.0-100.0); MEAN CORPUSCULAR HGB CONC 32.8 g/dL CAL (32.0-36.0); NEUT# 8.93 thou/uL (2.00-7.15); RED BLOOD COUNT 3.79 mill/uL (4.20-5.60)
[2020-10-03 13:44] LABS: ALBUMIN 3.8 g/dL (3.2-5.0); ALKALINE PHOSPHATASE 72 u/l (38-126); BUN 12 mg/dL (8-23); BUN/CREATININE RATIO 18 (12-20 (CALC)); CARBON DIOXIDE 28 mmol/l (22-30); CHLORIDE 89 mmol/l (95-108); CREATININE 0.7 mg/dL (0.5-1.0); GFR > 60 ML/MIN (>=60 (CALC)); GFR FOR AFR.AMER. > 60 ML/MIN (>=60 (CALC)); SODIUM 122 mmol/l (137-146); TOTAL PROTEIN 6.4 g/dL (6.3-8.2)
[2020-10-03 13:54] LABS: ANION GAP 8 (6-22 (CALC)); BILIRUBIN, TOTAL 0.7 mg/dL (0.0-1.4); SGOT/AST 41 u/l (9-36)
[2020-10-03 13:56] LABS: MYOGLOBIN 21 ng/mL (0 - 62)
--- NOTE | 2020-10-03 14:00 | NUR ---
RESTING QUIETLY, RESPS EVEN AND UNLABORED ON ROOM AIR, VSS, MONITORS ATTACHED. DENIES NEEDS AT THIS TIME.
--- NOTE | 2020-10-03 15:00 | NUR ---
MD AT BEDSIDE TO DISCUSS RESULTS AND POC.
--- NOTE | 2020-10-03 15:30 | NUR ---
COVID SWAB COLLECTED, ISOLATION PRECAUTIONS INITIATED.
[2020-10-03 15:38] LABS: URINE BILIRUBIN - DIPSTICK NEGATIVE (NEGATIVE); URINE BLOOD DIPSTICK NEGATIVE (NEGATIVE); URINE COLOR YELLOW; URINE GLUCOSE - DIPSTICK NEGATIVE (NEGATIVE); URINE KETONE NEGATIVE (NEGATIVE); URINE LEUK ESTERASE NEGATIVE (NEGATIVE); URINE NITRITE - DIPSTICK NEGATIVE (Negative); URINE PROTEIN - DIPSTICK NEGATIVE (NEG-TRACE); URINE SPECIFIC GRAVITY 1.015; URINE UROBILINOGEN - DIPSTICK 0.2 E.U./dL (0.2)
[2020-10-03 16:10] LABS: TSH, 3RD GENERATION 4.64 uIU/mL (0.47 - 4.68)
[2020-10-03] MEDS ORDERED: GABAPENTIN100 MG PO (16:11)
[2020-10-03] MEDS ORDERED: KETOROLAC10 MG PO (16:12)
[2020-10-03] MEDS ORDERED: METHOCARBAMOL500 MG PO (16:13)
--- NOTE | 2020-10-03 17:00 | NUR ---
Shabana MURCIA APRN AT BEDSIDE.
--- NOTE | 2020-10-03 17:00 | NUR ---
REPORT CALLED TO ROBB DUMONT.
--- NOTE | 2020-10-03 17:15 | NUR ---
TO MED SURG VIA STRETCHER, TELE MONITOR IN PLACE.
[2020-10-03 17:37] VITALS: BP 154/79
--- NOTE | 2020-10-03 17:42 | NUR ---
REPORT RECEIVED FROM MAU IN ED, PT TRANSPORTED TO UNIT VIA STRETCHER @ 1726,ALERT AND ORIENTED X 4, C/O SHARP PAIN FROM LEFT LOWER BACK DOWN TO LEFT LEG @ 7/10, TELE MONITOR IN PLACE, # [address] G[address]HETER IN PLACE TO RAC. EDUCATED ON FALL PRECAUTION, INFECTION CONTROL AND RISK OF BLOOD CLOTS, DIANNA HOSE APPLIED. ORIENTED TO ROOM AND CALL PRUITT, WILL CONTINUE TO MONITOR.
[2020-10-03 19:00] VITALS: BP 139/63
[2020-10-04] VITALS: BP 138/65
[2020-10-04 04:00] VITALS: BP 139/63
--- NOTE | 2020-10-04 04:05 | NUR ---
LATE ENTRY FOR 10/03/20 @ 1999 PT RESTING IN ROOM AT THIS TIME. P COMPLAINS OF 10/ PAIN TO LEFT SIDE LOWER BACK SCIATICA. THIS NURSE COMMUNICATED WITH PHYSICIAN WHO INDICATED HE WOULD REVIEW HER MEDICATIONS AND WOULD PRESCRIBE ACCORDINGLY. NO OTHER COMPLAINTS VOICED. NO S/S OF DISTRESS.
--- NOTE | 2020-10-04 04:08 | NUR ---
LATE ENTRY FOR 09/24/20 @ 0000 PT DOING WELL AT THIS TIME. PHYSICIAN REVIEWED MEDS AND ORDERED HOME MEDS T CONTINUE. TORADOL 15MG IV AND ROBAXIN 500MG PO ADMINSTERED AROUND 2230. MEDICATIONS EFFECTIVE FOR PAIN AND MUSCLE SPASMS. WILL MONITOR.
--- NOTE | 2020-10-04 04:09 | NUR ---
PT CONTINUES TO REST QUIETLY IN BED WITH EYES CLOSED. NO COMPLAINTS VOICED AT THIS TIME. TELE CONTINUES SR. WILL MONITOR
[2020-10-04 06:14] LABS: HEMATOCRIT 32.8 % (37.0-47.0); HEMOGLOBIN 10.7 g/dl (12.0-16.0); MEAN CELL VOLUME 85.9 fL CALC (80.0-100.0); MEAN CORPUSCULAR HGB CONC 32.6 g/dL CAL (32.0-36.0); RED BLOOD COUNT 3.82 mill/uL (4.20-5.60); RED CELL DISTRI WIDTH 13.2 % (11.5-15.5)
[2020-10-04 06:27] LABS: ANION GAP 9 (6-22 (CALC)); BUN 7 mg/dL (8-23); BUN/CREATININE RATIO 14 (12-20 (CALC)); CALCULATED LDLCHOLESTEROL 123 mg/dL (62-129 (CALC)); CARBON DIOXIDE 27 mmol/l (22-30); CHLORIDE 99 mmol/l (95-108); CHOLESTEROL HDL RATIO 3.7 (<4.4 (CALC)); CREATININE 0.5 mg/dL (0.5-1.0); GFR > 60 ML/MIN (>=60 (CALC)); GFR FOR AFR.AMER. > 60 ML/MIN (>=60 (CALC)); HDL CHOLESTEROL 56 mg/dL (>=40); MAGNESIUM 1.9 mg/dL (1.6-2.3); POTASSIUM 3.3 mmol/l (3.5-5.1); TOTAL CHOLESTEROL 210 mg/dl (0-199); TOTAL TRIGLYCERIDES 158 mg/dl (30-149); VLDL CHOLESTROL 32 mg/dl (1-41 (CALC))
[2020-10-04 06:42] LABS: SODIUM 132 mmol/l (137-146)
[2020-10-04 08:00] VITALS: BP 154/77
--- NOTE | 2020-10-04 08:00 | NUR ---
REPORT RECEIVED FROM AGNIESZKA. PT SITTING UP IN BED, HIGH FOWLERS; ALERT AND OREINTED. AMBULATED TO BATHROOM WITH STAND BY ASSIST. C/O 10/10 SCIATICA PAIN TO RIGHT BACK. RESPIRATIONS EVEN AND UNLABORED ON ROOM AIR; LUNGS ARE CLEAR. IV FLUIDS INFUSING AT 75ML/HR; IV SITE APPEARS HEALTHY. POC REVIEWED; PT ENCOURAGED TO VERBALIZE CONCERNS; STATES UNDERSTANDING. SAFETY MEASURES IN PLACE. CALL LIGHT WITHIN REACH.
--- NOTE | 2020-10-04 09:20 | NUR ---
DR. RO AT BEDSIDE FOR EVAL. TORADOL GIVEN WITH AM MEDS FOR SCIATICA PAIN; CARVEDILOL HELD FOR LOW HEART RATE.
[2020-10-04 11:39] VITALS: BP 146/81
[2020-10-04] MEDS ORDERED: SOD CHLORIDE1 G2 PO (12:51)
--- NOTE | 2020-10-04 13:28 | NUR ---
IV site discontinued, cath intact. No edema , no redness, voices no discomfort.
--- NOTE | 2020-10-04 13:43 | NUR ---
Discharge instructions given. Patient verbalizes understanding of same. Discharged in stable condition via Wheelchair to Home with spouse. All belongings sent with pt.
== END 2020-10-04 13:47 | disposition home or self-care (01) | DRG 918 ==
LOC: ED 12:28 → MS2 15:37
PROVIDERS: Emergency Medicine; Nurse Practitioner; ADMIT Internal Medicine; ATTEND Internal Medicine
DX: T50.911A Poisoning by multiple unspecified drugs, medicaments and biological substances, accidental (unintentional), initial encounter (principal); E87.1 Hypo-osmolality and hyponatremia; I42.9 Cardiomyopathy, unspecified; E87.6 Hypokalemia; R00.1 Bradycardia, unspecified; I11.0 Hypertensive heart disease with heart failure; I50.9 Heart failure, unspecified; E03.9 Hypothyroidism, unspecified; M47.816 Spondylosis without myelopathy or radiculopathy, lumbar region; J45.909 Unspecified asthma, uncomplicated; F32.9 Major depressive disorder, single episode, unspecified; F17.210 Nicotine dependence, cigarettes, uncomplicated; Y92.009 Unspecified place in unspecified non-institutional (private) residence as the place of occurrence of the external cause; Z86.73 Personal history of transient ischemic attack (TIA), and cerebral infarction without residual deficits; Z20.822 Contact with and (suspected) exposure to COVID-19
CPT/HCPCS: G0378; J1650

== ENCOUNTER 2020-10-11 05:45 | Emergency (ER) | payer BC ==
[~2020-10-11] VITALS: Ht 152.4 cm; Wt 68.0 kg
[~2020-10-11 05:45] MED LIST changes: +GABAPENTIN100 MG PO; +KETOROLAC10 MG PO; +METHOCARBAMOL500 MG PO; +SOD CHLORIDE1 G2 PO
[2020-10-11 07:16] VITALS: BP 183/92
== END 2020-10-11 07:20 | disposition home or self-care (01) | DRG 552 ==
LOC: ED 05:45
DX: M47.26 Other spondylosis with radiculopathy, lumbar region (principal); I42.9 Cardiomyopathy, unspecified; E03.9 Hypothyroidism, unspecified; I11.0 Hypertensive heart disease with heart failure; I50.9 Heart failure, unspecified; J45.909 Unspecified asthma, uncomplicated; F32.9 Major depressive disorder, single episode, unspecified; F17.210 Nicotine dependence, cigarettes, uncomplicated; Z86.73 Personal history of transient ischemic attack (TIA), and cerebral infarction without residual deficits

== ENCOUNTER 2020-11-03 | Inpatient (IN) | payer BC ==
[2020-11-03 15:09] LABS: HEMATOCRIT 31.1 % (37.0-47.0); HEMOGLOBIN 10.6 g/dl (12.0-16.0); IMMATURE GRANULOCYTES 1.1 % (0.0-5.0); MEAN CORPUSCULAR HGB 27.6 pG CALC (26.0-32.0); MEAN CORPUSCULAR HGB CONC 34.1 g/dL CAL (32.0-36.0); NEUT# 24.69 thou/uL (2.00-7.15); RED BLOOD COUNT 3.84 mill/uL (4.20-5.60); RED CELL DISTRI WIDTH 13.4 % (11.5-15.5)
[2020-11-03 15:25] LABS: ALBUMIN 4.1 g/dL (3.2-5.0); BILIRUBIN, TOTAL 0.9 mg/dL (0.0-1.4); BUN 11 mg/dL (8-23); BUN/CREATININE RATIO 12 (12-20 (CALC)); CARBON DIOXIDE 27 mmol/l (22-30); CREATININE 0.9 mg/dL (0.5-1.0); GFR > 60 ML/MIN (>=60 (CALC)); GFR FOR AFR.AMER. > 60 ML/MIN (>=60 (CALC)); LIPASE 38 u/l (23-300); MAGNESIUM 1.9 mg/dL (1.6-2.3); SGOT/AST 26 u/l (9-36); TOTAL PROTEIN 6.8 g/dL (6.3-8.2)
[2020-11-03 15:29] LABS: ALKALINE PHOSPHATASE 218 u/l (38-126); ANION GAP 12 (6-22 (CALC)); CHLORIDE 78 mmol/l (95-108); SODIUM 115 mmol/l (137-146)
[2020-11-03 18:43] LABS: URINE BILIRUBIN - DIPSTICK NEGATIVE (NEGATIVE); URINE BLOOD DIPSTICK NEGATIVE (NEGATIVE); URINE COLOR YELLOW; URINE GLUCOSE - DIPSTICK NEGATIVE (NEGATIVE); URINE KETONE TRACE mg/dL (NEGATIVE); URINE LEUK ESTERASE NEGATIVE (NEGATIVE); URINE PROTEIN - DIPSTICK NEGATIVE (NEG-TRACE); URINE SPECIFIC GRAVITY 1.015; URINE UROBILINOGEN - DIPSTICK 0.2 E.U./dL (0.2)
[2020-11-03 18:44] LABS: URINE NITRITE - DIPSTICK NEGATIVE (Negative)
[2020-11-03 19:56] LABS: BUN 9 mg/dL (8-23); BUN/CREATININE RATIO 15 (12-20 (CALC)); CARBON DIOXIDE 25 mmol/l (22-30); CHLORIDE 85 mmol/l (95-108); CREATININE 0.6 mg/dL (0.5-1.0); GFR > 60 ML/MIN (>=60 (CALC)); GFR FOR AFR.AMER. > 60 ML/MIN (>=60 (CALC))
[2020-11-03 19:59] LABS: ANION GAP 10 (6-22 (CALC))
[2020-11-03 20:00] LABS: POTASSIUM 2.3 mmol/l (3.5-5.1); SODIUM 118 mmol/l (137-146)
[2020-11-03 23:41] LABS: ANION GAP 9 (6-22 (CALC)); BUN 6 mg/dL (8-23); BUN/CREATININE RATIO 13 (12-20 (CALC)); CARBON DIOXIDE 23 mmol/l (22-30); CHLORIDE 88 mmol/l (95-108); CREATININE 0.5 mg/dL (0.5-1.0); GFR > 60 ML/MIN (>=60 (CALC)); GFR FOR AFR.AMER. > 60 ML/MIN (>=60 (CALC))
[2020-11-03 23:42] LABS: POTASSIUM 2.3 mmol/l (3.5-5.1); SODIUM 118 mmol/l (137-146)
[2020-11-04] VITALS (27 sets, daily range): BP systolic 86–193; BP diastolic 46–97
[2020-11-04 06:12] LABS: BUN 5 mg/dL (8-23); CARBON DIOXIDE 24 mmol/l (22-30); CHLORIDE 92 mmol/l (95-108); CREATININE 0.4 mg/dL (0.5-1.0); GFR > 60 ML/MIN (>=60 (CALC)); GFR FOR AFR.AMER. > 60 ML/MIN (>=60 (CALC)); SODIUM 123 mmol/l (137-146)
[2020-11-04 06:16] LABS: ALBUMIN 3.2 g/dL (3.2-5.0); POTASSIUM 3.4 mmol/l (3.5-5.1)
[2020-11-04] MEDS ORDERED: ALBUTEROL SUL0.083 % IN (07:45)
[2020-11-04] MEDS ORDERED: GABAPENTIN300 M2 PO (07:45)
[2020-11-04] MEDS ORDERED: ONDANSETRON ODT8 MG SL (07:46)
[2020-11-04] MEDS ORDERED: MEDROL DOSEPAK4 MG PO (07:46)
[2020-11-04] MEDS ORDERED: SPIRIVA HANDIHALER IN (07:47)
[2020-11-04] MEDS ORDERED: CARVEDILOL6.25 MG PO (07:47)
[2020-11-04] MEDS ORDERED: ATORVASTATIN CA20 MG PO (07:47)
[2020-11-04] MEDS ORDERED: METHOCARBAMOL500 MG PO (07:48)
[2020-11-04] MEDS ORDERED: ISOSORB MONO30 MG PO (07:48)
[2020-11-04] MEDS ORDERED: SYMBICORT1 AE1 IN (07:49)
[2020-11-04] MEDS ORDERED: SOD CHLORIDE1 GM PO (07:49)
[2020-11-04] MEDS ORDERED: HYZAAR1 TA2 PO (07:50)
[2020-11-04] MEDS ORDERED: TRAZODONE100 MG PO (07:51)
[2020-11-05] VITALS (23 sets, daily range): BP systolic 92–157; BP diastolic 46–80
[2020-11-05 03:29] LABS: HEMATOCRIT 27.7 % (37.0-47.0); MEAN CORPUSCULAR HGB 27.6 pG CALC (26.0-32.0); MEAN CORPUSCULAR HGB CONC 32.5 g/dL CAL (32.0-36.0); RED BLOOD COUNT 3.26 mill/uL (4.20-5.60); RED CELL DISTRI WIDTH 14.1 % (11.5-15.5)
[2020-11-05 04:09] LABS: ALBUMIN 2.6 g/dL (3.2-5.0); BUN 9 mg/dL (8-23); CARBON DIOXIDE 25 mmol/l (22-30); CHLORIDE 97 mmol/l (95-108); CREATININE 0.5 mg/dL (0.5-1.0); GFR > 60 ML/MIN (>=60 (CALC)); GFR FOR AFR.AMER. > 60 ML/MIN (>=60 (CALC)); MAGNESIUM 1.9 mg/dL (1.6-2.3); POTASSIUM 3.5 mmol/l (3.5-5.1); SODIUM 126 mmol/l (137-146)
[2020-11-06] VITALS (17 sets, daily range): BP systolic 97–173; BP diastolic 46–96
[2020-11-06 05:33] LABS: HEMATOCRIT 26.1 % (37.0-47.0); HEMOGLOBIN 8.3 g/dl (12.0-16.0); MEAN CELL VOLUME 86.4 fL CALC (80.0-100.0); MEAN CORPUSCULAR HGB 27.5 pG CALC (26.0-32.0); MEAN CORPUSCULAR HGB CONC 31.8 g/dL CAL (32.0-36.0); RED BLOOD COUNT 3.02 mill/uL (4.20-5.60); RED CELL DISTRI WIDTH 14.1 % (11.5-15.5)
[2020-11-06 05:46] LABS: ALBUMIN 2.6 g/dL (3.2-5.0); ALKALINE PHOSPHATASE 149 u/l (38-126); ANION GAP 7 (6-22 (CALC)); CARBON DIOXIDE 28 mmol/l (22-30); CHLORIDE 95 mmol/l (95-108); CREATININE 0.5 mg/dL (0.5-1.0); GFR > 60 ML/MIN (>=60 (CALC)); GFR FOR AFR.AMER. > 60 ML/MIN (>=60 (CALC)); MAGNESIUM 1.7 mg/dL (1.6-2.3); POTASSIUM 3.7 mmol/l (3.5-5.1); SGOT/AST 21 u/l (9-36); SODIUM 126 mmol/l (137-146)
[2020-11-06 05:47] LABS: BILIRUBIN, TOTAL 0.5 mg/dL (0.0-1.4); BUN 29 mg/dL (8-23); BUN/CREATININE RATIO 58 (12-20 (CALC)); TOTAL PROTEIN 4.7 g/dL (6.3-8.2)
[2020-11-07 03:45] VITALS: BP 124/73
[2020-11-07 05:51] LABS: HEMATOCRIT 24.2 % (37.0-47.0); HEMOGLOBIN 7.7 g/dl (12.0-16.0); IMMATURE GRANULOCYTES 2.5 % (0.0-5.0); MEAN CELL VOLUME 87.4 fL CALC (80.0-100.0); MEAN CORPUSCULAR HGB 27.8 pG CALC (26.0-32.0); MEAN CORPUSCULAR HGB CONC 31.8 g/dL CAL (32.0-36.0); NEUT# 12.18 thou/uL (2.00-7.15); RED BLOOD COUNT 2.77 mill/uL (4.20-5.60)
[2020-11-07 06:09] LABS: ALBUMIN 2.4 g/dL (3.2-5.0); ALKALINE PHOSPHATASE 142 u/l (38-126); ANION GAP 6 (6-22 (CALC)); BILIRUBIN, TOTAL 0.5 mg/dL (0.0-1.4); BUN 20 mg/dL (8-23); BUN/CREATININE RATIO 43 (12-20 (CALC)); CARBON DIOXIDE 30 mmol/l (22-30); CHLORIDE 95 mmol/l (95-108); CREATININE 0.5 mg/dL (0.5-1.0); GFR > 60 ML/MIN (>=60 (CALC)); GFR FOR AFR.AMER. > 60 ML/MIN (>=60 (CALC)); MAGNESIUM 1.5 mg/dL (1.6-2.3); POTASSIUM 3.6 mmol/l (3.5-5.1); SGOT/AST 21 u/l (9-36); SODIUM 128 mmol/l (137-146); TOTAL PROTEIN 4.5 g/dL (6.3-8.2)
[2020-11-07 07:45] VITALS: BP 155/75
[2020-11-07] MEDS ORDERED: COREG12.5 MG PO (10:53)
[2020-11-07] MEDS ORDERED: APRESOLINE50 MG PO (10:53)
[2020-11-07] MEDS ORDERED: Levaquin PO (10:54)
[2020-11-07] MEDS ORDERED: FERR SULFATE325 MG PO (10:54)
[2020-11-07] MEDS ORDERED: MEDDOSEPAK PO (10:57)
[2020-11-07] MEDS ORDERED: LASIX20 MG PO (12:16)
[2020-11-07] MEDS ORDERED: LORTAB5 PO (12:19)
[2020-11-07] MEDS ORDERED: OXY1 (15:59)
== END 2020-11-07 14:25 | disposition home health service (06) | DRG 872 ==
PROVIDERS: Family Medicine; Internal Medicine Nephrology; Nurse Practitioner; ADMIT Internal Medicine
PROC: 06HY33Z Insertion of Infusion Device into Lower Vein, Percutaneous Approach (ICD-10-PCS; principal; 2020-11-03)
DX: A41.9 Sepsis, unspecified organism (principal); E22.2 Syndrome of inappropriate secretion of antidiuretic hormone; T50.2X5A Adverse effect of carbonic-anhydrase inhibitors, benzothiadiazides and other diuretics, initial encounter; E86.0 Dehydration; E87.6 Hypokalemia; E86.9 Volume depletion, unspecified; I10 Essential (primary) hypertension; J44.9 Chronic obstructive pulmonary disease, unspecified; D64.9 Anemia, unspecified; E03.9 Hypothyroidism, unspecified; F32.9 Major depressive disorder, single episode, unspecified; G62.9 Polyneuropathy, unspecified; M47.26 Other spondylosis with radiculopathy, lumbar region; K21.9 Gastro-esophageal reflux disease without esophagitis; F17.210 Nicotine dependence, cigarettes, uncomplicated; Z86.73 Personal history of transient ischemic attack (TIA), and cerebral infarction without residual deficits; Z88.0 Allergy status to penicillin; Z20.822 Contact with and (suspected) exposure to COVID-19
CPT/HCPCS: G0328; J1650; J1756; J3370; J3475; S0073

== ENCOUNTER 2020-11-07 16:11 | Inpatient (IN) | payer BC ==
[~2020-11-07 16:11] MED LIST changes: +ALBUTEROL SUL0.083 % IN; +APRESOLINE50 MG PO; +ATORVASTATIN CA20 MG PO; +CARVEDILOL6.25 MG PO; +COREG12.5 MG PO; +FERR SULFATE325 MG PO; +GABAPENTIN300 M2 PO; +HYZAAR1 TA2 PO; +ISOSORB MONO30 MG PO; +LASIX20 MG PO; +LORTAB5 PO; +Levaquin PO; +MEDROL DOSEPAK4 MG PO; +ONDANSETRON ODT8 MG SL; +OXY1; +SOD CHLORIDE1 GM PO; +SPIRIVA HANDIHALER IN
--- NOTE | 2020-11-07 16:11 | NUR ---
TO ROOM VIA EMS. SPO2 88% ON ROOM AIR, O2 VIA NC APPLIED, SPO2 95% ON 3L VIA NC.
--- NOTE | 2020-11-07 17:10 | NUR ---
SBAR PRINTED TO FLOOR
--- NOTE | 2020-11-07 17:55 | NUR ---
RT AT BEDSIDE.
[2020-11-07 18:14] LABS: HEMATOCRIT 25.7 % (37.0-47.0); HEMOGLOBIN 8.2 g/dl (12.0-16.0); IMMATURE GRANULOCYTES 3.5 % (0.0-5.0); MEAN CELL VOLUME 86.2 fL CALC (80.0-100.0); MEAN CORPUSCULAR HGB 27.5 pG CALC (26.0-32.0); MEAN CORPUSCULAR HGB CONC 31.9 g/dL CAL (32.0-36.0); NEUT# 15.33 thou/uL (2.00-7.15); RED BLOOD COUNT 2.98 mill/uL (4.20-5.60)
[2020-11-07 18:26] LABS: ALKALINE PHOSPHATASE 198 u/l (38-126); ANION GAP 8 (6-22 (CALC)); BILIRUBIN, TOTAL 0.5 mg/dL (0.0-1.4); BUN 14 mg/dL (8-23); BUN/CREATININE RATIO 33 (12-20 (CALC)); CARBON DIOXIDE 32 mmol/l (22-30); CHLORIDE 91 mmol/l (95-108); CREATININE 0.4 mg/dL (0.5-1.0); GFR > 60 ML/MIN (>=60 (CALC)); GFR FOR AFR.AMER. > 60 ML/MIN (>=60 (CALC)); POTASSIUM 3.4 mmol/l (3.5-5.1); SODIUM 128 mmol/l (137-146); TOTAL PROTEIN 5.3 g/dL (6.3-8.2)
[2020-11-07 18:27] LABS: ALBUMIN 2.9 g/dL (3.2-5.0); SGOT/AST 37 u/l (9-36)
--- NOTE | 2020-11-07 19:50 | NUR ---
MD AT BEDSIDE PLACED ON NRB 100%
--- NOTE | 2020-11-07 20:30 | NUR ---
Admission Note Report Given to: JULIA GRAJEDA Transported by: Wheelchair X Stretcher Transported with: X Nurse Transporter X Patent IV X O2 X Loom Stop Checker Location: X ICU MS2
--- NOTE | 2020-11-07 20:30 | NUR ---
PT ARRIVED FROM THE ER BY STRETCHER WITH BELONGINGS, ON NON REBREATHER BY HOWARD. RT ARRIVED TO APPLY VAPOTHERM WITHIN A FEW MINUTES. PT WAS ASSESSED, SKIN INTACT, IV PATENT, DIXON INPLACE, AUDIBLE BILATERAL WHEEZING. NEBI TREATMENT AND NIGHTLY MEDICATIONS ADMINISTERED. PT RESTING IN MID-FOWLERS POSITION TO INCREASE EFFECTIVE BREATHING. WILL CONTINUE TO MONITOR. CALL LIGHT AND BELONGINGS WTHIN REACH.
[2020-11-07 20:45] VITALS: BP 145/59
--- NOTE | 2020-11-07 20:56 | NUR ---
PT ARRIVED IN ICU-6 FROM ED. PER ED PHYSICIAN, PT PLACED ON VAPOTHERM NASAL CANNULA TO MAINTAIN SPO2.
[2020-11-07 21:00] VITALS: BP 146/62
[2020-11-07 21:15] VITALS: BP 125/70
[2020-11-07 21:30] VITALS: BP 154/73
[2020-11-07 21:45] VITALS: BP 133/60
--- NOTE | 2020-11-07 22:00 | NUR ---
SINCE ARRIVAL TO ICU RT WAS CALLED FOR INCREASE IN VAPOTHERM DUE TO INSUFFICIENT OXYGEN LEVELS. CURRENT SETTING AT 70%/30L WITH SP02 AT 88-92%.
--- NOTE | 2020-11-07 22:00 | NUR ---
PT RESTING WITH EYES CLOSED, SP02 FLUCUATING BETWEEN 88-92%. DR. BURNETT CALLED TO CHECK ON PT AND ORDERED ADDITIONAL MEDICATIONS. AWAITING PHARMACY APPROVAL FOR ADMINISTRATION. WILL CONTINUE TO MONITOR.
[2020-11-07 22:46] LABS: URINE BILIRUBIN - DIPSTICK NEGATIVE (NEGATIVE); URINE BLOOD DIPSTICK NEGATIVE (NEGATIVE); URINE CLARITY CLEAR; URINE COLOR YELLOW; URINE GLUCOSE - DIPSTICK NEGATIVE (NEGATIVE); URINE KETONE NEGATIVE (NEGATIVE); URINE LEUK ESTERASE NEGATIVE (Negative); URINE NITRITE - DIPSTICK NEGATIVE (Negative); URINE PROTEIN - DIPSTICK NEGATIVE (NEG-TRACE); URINE UROBILINOGEN - DIPSTICK 0.2 E.U./dL (0.2)
[2020-11-07 23:00] VITALS: BP 145/64
[2020-11-08] VITALS (22 sets, daily range): BP systolic 123–172; BP diastolic 63–82
--- NOTE | 2020-11-08 | NUR ---
PT RESTING WATCHING TV. OXYGEN LEVELS ARE IMPROVING, PT ASKED FOR SOMETHING TO EAT. SHE WAS PROVIDED A TURKEY SANDWICH, SHE ATE ABOUT HALF AND HER WATER WAS REFILLED. BELONGINGS AND CALL LIGHT WITHIN REACH.
--- NOTE | 2020-11-08 02:00 | NUR ---
PT SLEEPING IN HIGH FOWLERS POSITION W/O S/S OF DISTRESS. O2 DECREASES SOME WHEN IN DEEPER SLEEP THEN RAISES WHEN STIRRED. CALL LIGHT WITHIN REACH.
--- NOTE | 2020-11-08 04:00 | NUR ---
PT SLEEPING NO SIGNS OF DISCOMFORT. WILL CONTINUE TO MONITOR. LUNGS ARE SOUNDING BETTER SINCE ADMINISTRATION OF LASIX AND SOLUMEDRAL LAST NIGHT.
[2020-11-08 05:40] LABS: HEMATOCRIT 25.1 % (37.0-47.0); MEAN CELL VOLUME 86.6 fL CALC (80.0-100.0); MEAN CORPUSCULAR HGB 27.6 pG CALC (26.0-32.0); MEAN CORPUSCULAR HGB CONC 31.9 g/dL CAL (32.0-36.0); RED BLOOD COUNT 2.9 mill/uL (4.20-5.60); RED CELL DISTRI WIDTH 13.9 % (11.5-15.5)
--- NOTE | 2020-11-08 06:01 | NUR ---
PT IS AWAKE AND HAD A BOWEL MOVEMENT, PT HAVING UNCERTAINTY OF BOWEL SENSATION. WAS PUT ON BEDPAN A FEW TIMES WITH OUT SUCCESS AND THEN CALLED TOO LATE THE LAST TIME. PT CLEANED, REPOSITIONED AND FLUIDS REFILLED. CALL LIGHT WITHIN REACH AND BELONGINGS BEDSIDE.
[2020-11-08 06:04] LABS: ALBUMIN 2.8 g/dL (3.2-5.0); ALKALINE PHOSPHATASE 166 u/l (38-126); BILIRUBIN, TOTAL 0.5 mg/dL (0.0-1.4); BUN 10 mg/dL (8-23); BUN/CREATININE RATIO 28 (12-20 (CALC)); CARBON DIOXIDE 34 mmol/l (22-30); CHLORIDE 91 mmol/l (95-108); CREATININE 0.4 mg/dL (0.5-1.0); GFR > 60 ML/MIN (>=60 (CALC)); GFR FOR AFR.AMER. > 60 ML/MIN (>=60 (CALC)); SGOT/AST 31 u/l (9-36); SODIUM 128 mmol/l (137-146); TOTAL PROTEIN 5.2 g/dL (6.3-8.2)
[2020-11-08 06:07] LABS: ANION GAP 7 (6-22 (CALC)); POTASSIUM 3.7 mmol/l (3.5-5.1)
--- NOTE | 2020-11-08 06:36 | NUR ---
weammed vapotherm as aspen. pt a/o watching televsions. asphalt heater tender to admin bronchodilator therapy. nad. vss.
--- NOTE | 2020-11-08 06:43 | NUR ---
PT IN BED, WATCHING TV. SYLVIE AEROSOLIZED BRONCHODILATOR THERAPY WELL. NO ACUTE DISTRESS NOTED. MINE TECHNICIAN TO MONITOR. WEAN OXYGEN SYLVIE.
--- NOTE | 2020-11-08 07:00 | NUR ---
UPON ENTERING ROOM, PT TAKEN OFF BED MARIA. MODERATE SIZE BM NOTED, FORM AND BROWN IN COLOR. PT A&O X3. VAPOTHERM 15L 40% IN PLACE. O2 SUSTAINING 94-96%. DIANNA RT AT BEDSIDE. PT C/O OF A LEWIS, REQUESTING LORTAB. PT DENIES THE USE OF O2 @ HOME. DIXON CATH IN PLACE DRAINING VIA GRAVITY WITH CLEAR YELLOW URINE NOTED. COARSE/DIMINISHED BREATH SOUNDS UPON AUSCULTATION. ACTIVE BOWEL SOUNDS X4 QUADS. #20 EMS IV SITE TO RAC, PT EDUCATED ON CHANGING IV SITE TO DECREASE THE RISK OF INFECTION, PT AGREEABLE. ASSESSMENT COMPLETED. DISCUSSED POC. CALL LIGHT WITHIN REACH.
--- NOTE | 2020-11-08 09:25 | NUR ---
S: KAILA MATTHEW is a 65 F who presents with pneumonia. She has a history of TIA, TOB mental disorder, thyroid problems, hypertension, lung disease, heart disease, CVA, angioplasty, asthma, CHF, and cardiomyopathy. All medications in patient's chart were reviewed. O: VS: BP 160/70 mmHg, P 88 bpm, RR 15 bpm, T 98.2 F W 72 kg, HT 60 in, Scr=0.4 mg/dl,CrCl= 107.7 ml/min A: Blood cultures from 11/03 pending, no growth at 48 hours. P: Patient is on levofloxacin 750 mg IV Q24H. Vancomycin ordered for pharmacy to dose. Start Vancomycin 1250 mg IV Q8H. Vancomycin trough is drawn before the 4th dose on 11/09/20 @ 09:30. Vancomycin goal trough is between 15-20 mcg/ml. Pharmacy will follow and or advise on antibiotics use as needed.
--- NOTE | 2020-11-08 09:37 | NUR ---
pt resting comfortably in bed. client relations associate in room at this time. no acute distress noted at this time. grazing examiner to monitor.
--- NOTE | 2020-11-08 09:39 | NUR ---
NEW #22G STARTED IN LAC.SITE REMAINS HEALTHY AND PATENT. #20G EMS RAC REMOVED FROM RAC.
--- NOTE | 2020-11-08 10:57 | NUR ---
ACCIDENTAL BOWEL INCONTINENCE EPISODE. BM STOOL AND MODERATE IN SIZE. NO OTHER NEEDS AT THIS TIME. CALL LIGHT WITHIN REACH.
--- NOTE | 2020-11-08 11:15 | NUR ---
DR BURNETT AT BEDSIDE DISCUSSING POC
--- NOTE | 2020-11-08 12:00 | NUR ---
Pt laying in bed eating lunch. Iv joo infusing, #22 lac healthy and patent. no needs at this time. pt denies any pain. O2 currently 95%. call light within reach.
--- NOTE | 2020-11-08 14:00 | NUR ---
PT IN BED WATCHING TV. NO DISTRESS NOTED. CALL LIGHT WITHIN REACH.
--- NOTE | 2020-11-08 14:18 | NUR ---
WEANED VAPOTHERM PARAMETERS PT SYLVIE/ PER PT SPO2. SYLVIE WELL AT THIS TIME. NAD. VSS. SUBMARINE WORKER TO MONITOR.
--- NOTE | 2020-11-08 14:21 | NUR ---
WEANED VAPOTHERM PARAMETERS PER PT SYLVIE/PT SPO2. NAD. VSS. PT SYLVIE WELL AT THIS TIME. JAVA ORACLE DEVELOPER TO MONITOR.
--- NOTE | 2020-11-08 15:55 | NUR ---
PT LAYING IN BED NO DISTRESS NOTED. O2 CURRENTLY 92%. NO NEEDS AT THIS TIME. CALL LIGHT WITHIN REACH.
--- NOTE | 2020-11-08 19:02 | NUR ---
REPORT FROM MAGALY DUMONT. ASSUME PT CARE.
--- NOTE | 2020-11-08 19:31 | NUR ---
PT REQUEST NEB TREATMENT. RT NOTIFIED. NO APPARENT DISTRESS NOTED. CALL LIGHT WITHIN REACH.
--- NOTE | 2020-11-08 20:48 | NUR ---
PLACED PT ON BEDPAN AT THIS TIME. SMALL LOOSE BOWEL MOVEMENT NOTED. FLACO AND DIXON CARE PROVIDED. PT REPOSITIONED IN BED. WARM BLANKET PROVIDED. NO OTHER CURRENT WANTS OR NEEDS. DIXON PATENT DRAINING TO GRAVITY. CALL LIGHT WITHIN REACH. WILL CONTINUE TO MONITOR.
--- NOTE | 2020-11-08 21:49 | NUR ---
PT MEDICATED FOR HEADACHE AND BACK PAIN 02/02 WITH PRN LORTAB. NO APPARENT DISTRESS NOTED. IV FLUSHED AT THIS TIME, IV SITE APPEARS HEALTHY. MONITORS IN PLACE. PT DENIES ANY OTHER CURRENT WANTS OR NEEDS. LIGHT TURNED OFF AT THIS TIME. DESTINY REMAINS PATENT. CALL LIGHT WITHIN REACH. WILL CONTINUE TO MONITOR.
[2020-11-09] VITALS (17 sets, daily range): BP systolic 126–164; BP diastolic 52–82
--- NOTE | 2020-11-09 00:09 | NUR ---
PT RESTING IN BED WITH EYES CLOSED. NO APPARENT DISTRESS NOTED. RESPIRATIONS EVEN AND UNLABORED. PT REMAINS ON VAPOTHERM 10L/M @ 50% FIO2. DIXON PATENT DRAINING TO GRAVITY. MONITORS IN PLACE. IV SITE APPEARS HEALTHY. CALL LIGHT WITHIN REACH. WILL CONTINUE TO MONITOR.
--- NOTE | 2020-11-09 01:52 | NUR ---
PT RESTING IN BED WITH EYES CLOSED. WAKES EASILY. NO APPARENT DISTRESS NOTED. PT ALERT AND ORIENTED X3. IV SITE FLUSHED, IV ABT INITIATED. PT TOLERATED WELL. DIXON REMAINS PATENT DRAINING TO GRAVITY. MONITORS IN PLACE. RESPIRATIONS EVEN AND UNLABORED ON VAPOTHERM 10L/M @ 50% FIO2. CALL LIGHT WITHIN REACH. PT DENIES ANY OTHER CURRENT WANTS OR NEEDS. CALL LIGHT WITHIN REACH. WILL CONTINUE TO MONTIOR.
--- NOTE | 2020-11-09 03:56 | NUR ---
PT PLACED ON BEDPAN UPON REQUEST. CALL LIGHT WITHIN REACH. PT VERBALIZED SHE WOULD CALL WHEN FINISHED. WILL CONTINUE TO MONITOR.
--- NOTE | 2020-11-09 04:07 | NUR ---
PT REMOVED OFF BEDPAN. NO BM AT THIS TIME. PT REPOSITIONED IN BED X2 PERSON ASSIST. DIXON REMAINS PATENT DRAINING TO GRAVITY. NO APPARENT DISTRESS NOTED. IV SITE APPEARS HEALTHY. PT REMAINS ON VAPOTHERM 10L/M @50% SATS 92-94%. DENIES ANY CURRENT WANTS OR NEEDS. CALL LIGHT WITHIN REACH. WILL CONTINUE TO MONITOR.
[2020-11-09 04:33] LABS: BASO% 0 % (0-3); EOS% 0 % (0-8); HEMATOCRIT 23.7 % (37.0-47.0); HEMOGLOBIN 7.6 g/dl (12.0-16.0); IMMATURE GRANULOCYTES 5.1 % (0.0-5.0); LYMPH% 4 % (15-41); MEAN CELL VOLUME 86.5 fL CALC (80.0-100.0); MEAN CORPUSCULAR HGB 27.7 pG CALC (26.0-32.0); MEAN CORPUSCULAR HGB CONC 32.1 g/dL CAL (32.0-36.0); MONO% 5 % (2-13); NEUT# 15.31 thou/uL (2.00-7.15); NEUT% 85 % (42-76); PLATELET COUNT 364 thou/uL (130-400); RED BLOOD COUNT 2.74 mill/uL (4.20-5.60); RED CELL DISTRI WIDTH 14.2 % (11.5-15.5)
[2020-11-09 04:42] LABS: ALBUMIN 2.7 g/dL (3.2-5.0); ALKALINE PHOSPHATASE 140 u/l (38-126); ANION GAP 5 (6-22 (CALC)); BILIRUBIN, TOTAL 0.5 mg/dL (0.0-1.4); BUN 9 mg/dL (8-23); BUN/CREATININE RATIO 20 (12-20 (CALC)); CARBON DIOXIDE 34 mmol/l (22-30); CHLORIDE 89 mmol/l (95-108); CREATININE 0.4 mg/dL (0.5-1.0); GFR > 60 ML/MIN (>=60 (CALC)); GFR FOR AFR.AMER. > 60 ML/MIN (>=60 (CALC)); POTASSIUM 3.4 mmol/l (3.5-5.1); SGOT/AST 35 u/l (9-36); SODIUM 125 mmol/l (137-146); TOTAL PROTEIN 4.9 g/dL (6.3-8.2)
[2020-11-09 04:57] LABS: C-REACTIVE PROTEIN 17.7 mg/dL (0-0.9)
--- NOTE | 2020-11-09 06:17 | NUR ---
PT MEDICATED ORDERED. PT NOTED SITTING UP IN BED WATCHING TV. ALERT AND ORIENTED X3. NO APPARENT DISTRESS NOTED. PT DENIES ANY PAIN OR DISCOMFORT. RESPIRATIONS EVEN AND UNLABORED, REMAINS ON VAPOTHERM SETTING UNCHANGED. DESTINY REMAINS PATENT. PT DENIES ANY CURRENT WANTS OR NEEDS. CALL LIGHT WITHIN REACH. WILL CONTINUE TO MONITOR.
--- NOTE | 2020-11-09 06:46 | NUR ---
pt resting comfortably in bed. no acute distress noted at this time. vital signs stable. possible weaning of oxygen delivery system today as per pt tolerance. pulley man to monitor.
--- NOTE | 2020-11-09 07:30 | NUR ---
REPORT RECEIVED FROM CARMEN DIAZ. PT RESTING IN BED SEMI FOWLERS; ALERT AND ORIENTED. C/O PAIN TO THROAT AND RIBS WHEN COUGHING AND ALSO HAS MILD HEADACHE; PT BECOMES TEARFUL AND STARTS TO CRY WHEN VERBALIZING HER PAIN. RESPIRATIONS EVEN AND UNLABORED ON OXYGEN VAPOTHERM 10L 50% FIO2 34 DEGREES; SPO2 95%. PT REPORTS THAT SHE NEEDS A BREATHING TREATMENT AND AGAIN BEGINS TO CRY. PT ASKED ABOUT HER TEARFULNESS AND SHE ONLY REPLYS, "I JUST HURT AND NEED A BREATHING TREATMENT." LUNGS ARE COURSE AND WHEEZING THROUGHOUT. DIXON CATHETER DRAINING CLEAR YELLOW URINE. PT ASSISTED INTO BEDSIDE CHAIR WITH ONE PERSON ASSIST. POC REVIEWED. PT ENCOURAGED TO VERBALIZE CONCERNS; STATES UNDERSTANDING AND AGAIN BECOMES TEARFUL WHEN DISCUSSING HER WEAKNESS AND SYMPTOMS; TLC PROVIDED. SAFETY MEASURES IN PLACE. CALL LIGHT WITHIN REACH.
--- NOTE | 2020-11-09 07:47 | NUR ---
RT AT BEDSIDE FOR BREATHING TREATMENT PER PT REQUEST; PT NOW RECEIVING HUMIDIFIED OXYGEN AT 5L VIA HIGH FLOW NC; SPO2 93%. RADIOLOGY ALSO AT BEDSIDE FOR PORTABLE CHEST XRAY.
--- NOTE | 2020-11-09 07:50 | NUR ---
pt called for prn tx. prn ordered or sob. pt c nad. chief of planning still admin neb tx as per customer care. nad. vss. chief of planning weaned off of vapotherm and onto 5lpm hfnc.
--- NOTE | 2020-11-09 08:55 | NUR ---
LORTAB AND KLONOPIN GIVEN WITH AM MEDS. PT WAVING NURSE INTO ROOM TO REQUEST PAIN MEDICATION FOR SEVERE BACK PAIN; REEDUCATED ON USE OF CALL LIGHT SYSTEM FOR ANY NEEDS; STATES UNDERSTANDING. BEGINS TO CRY WHEN REPORTING BACK PAIN. ASSISTED BACK INTO BED AT THIS TIME.
--- NOTE | 2020-11-09 09:09 | NUR ---
DR. MACKAY AT BEDSIDE.
--- NOTE | 2020-11-09 10:34 | NUR ---
DR. RODRIGUEZ AT [facility] BEDSIDE FOR PULMONOLOGY CONSULT. VANCOMYCIN INFUSING AT THIS TIME.
--- NOTE | 2020-11-09 11:09 | NUR ---
NOW RESTING ON 2L VIA NC; SPO2 SUSTAINS AT 96-97%.
--- NOTE | 2020-11-09 11:15 | NUR ---
WEANED TO 2LPM HFNC. PT SYLVIE WELL. NAD. BA. RN AWARE. REGULATORY SCIENTIST TO MONITOR.
--- NOTE | 2020-11-09 11:51 | NUR ---
DECLINED TO GET UP TO CHAIR FOR LUNCH; MEAL PROVIDED IN BED HIGH FOWLERS. CONTINUES TO C/O MODERATE LOWER BACK PAIN. SPO2 97% ON 2L.
--- NOTE | 2020-11-09 13:20 | NUR ---
LORTAB GIVEN FOR 8/10 BACK PAIN. PT RESTING BACK IN SEMI FOWLERS WITH NO SIGNS OF DISTRESS. CALL LIGHT WITHIN REACH.
--- NOTE | 2020-11-09 14:14 | NUR ---
Pt screened by speech therapy. Evaluation recommended during acute care stay or to receive outpatient evaluation.
--- NOTE | 2020-11-09 15:33 | NUR ---
FAMILY MEMBER AT BEDSIDE.
--- NOTE | 2020-11-09 17:28 | NUR ---
DECLINES OFFER FOR PAIN MEDICATION STATING THAT SHE DOES NOT NEED ANY AT THIS TIME. REQUESTS BREATHING TREATMENT; ALBUTEROL BREATHING TREATMENT ADMINISTERED AT THIS TIME.
--- NOTE | 2020-11-09 18:55 | NUR ---
REPORT FROM MIKE DUMONT. ASSUME PT CARE.
--- NOTE | 2020-11-09 19:17 | NUR ---
PT INCONTINENT OF BOWELS AT THIS TIME. PT PLACED ON BEDPAN UPON REQUEST. CALL LIGHT WITHIN REACH. PT INSTRUCTED TO CALL WHEN FINISHED. PT VERBALIZED UNDERSTANDING.
--- NOTE | 2020-11-09 19:30 | NUR ---
PT REMOVED OFF BEDPAN AT THIS TIME. COMPLETE BED BATH WITH FLACO AND DIXON CARE PROVIDED WITH FULL LINEN CHANGE. PT REPOSITIONED IN BED AND REATTACHED TO MONITORS. SET PT UP IN BED TO PERFORM SELF ORAL CARE UPON REQUEST. PT TOLERATED WELL. DIXON REMAINS PATENT DRAINING TO GRAVITY. PT DENIES ANY CURRENT WANTS OR NEEDS. CALL LIGHT WITHIN REACH. WILL CONTINUE TO MONITOR.
--- NOTE | 2020-11-09 21:10 | NUR ---
PT MEDICATED ORDERED NO APPARENT DISTRESS NOTED. PT ALERT AND ORIENTED X3. RESPIRATIONS EVEN AND UNLABORED. O2 @ 2L/M VIA NC SATS 98%. MONITORS IN PLACE. PT DENIES ANY PAIN OR DISCOMFORT. DIXON PATENT DRAINING TO GRAVITY. DISCUSSED POC. PT VERBALIZED UNDERSTANDING. NO CURRENT WANTS OR NEEDS NOTED. FRESH ICE WATER PROVIDED. CALL LIGHT WITHIN REACH. WILL CONTINUE TO MONITOR.
--- NOTE | 2020-11-09 23:24 | NUR ---
PT RESTING IN BED WITH EYES CLOSED. NO APPARENT DISTRESS NOTED. RESPIRATIONS EVEN AND UNLABORED. ON 2L/M VIA NC, SATS 93%. DIXON PATENT DRAINING TO GRAVITY. MONITORS IN PLACE. IV SITE APPEARS HEALTHY. CALL LIGHT WITHIN REACH. WILL CONTINUE TO MONITOR.
[2020-11-10] VITALS (11 sets, daily range): BP systolic 128–175; BP diastolic 63–97
--- NOTE | 2020-11-10 01:30 | NUR ---
PT MEDICATED FOR BACK PAIN 02/02 WITH PRN LORTAB. NO APPARENT DISTRESS NOTED. MONITORS IN PLACE. PT DENIES ANY OTHER CURRENT WANTS OR NEEDS. DESTINY REMAINS PATENT. CALL LIGHT WITHIN REACH. WILL CONTINUE TO MONITOR.
[2020-11-10 05:58] LABS: HEMATOCRIT 25.6 % (37.0-47.0); HEMOGLOBIN 8.2 g/dl (12.0-16.0); MEAN CELL VOLUME 87.1 fL CALC (80.0-100.0); MEAN CORPUSCULAR HGB 27.9 pG CALC (26.0-32.0); RED BLOOD COUNT 2.94 mill/uL (4.20-5.60); RED CELL DISTRI WIDTH 14.2 % (11.5-15.5)
[2020-11-10 06:06] LABS: ALBUMIN 2.7 g/dL (3.2-5.0); ALKALINE PHOSPHATASE 129 u/l (38-126); ANION GAP 8 (6-22 (CALC)); BILIRUBIN, TOTAL 0.4 mg/dL (0.0-1.4); BUN 10 mg/dL (8-23); BUN/CREATININE RATIO 22 (12-20 (CALC)); CARBON DIOXIDE 33 mmol/l (22-30); CHLORIDE 89 mmol/l (95-108); CREATININE 0.5 mg/dL (0.5-1.0); GFR > 60 ML/MIN (>=60 (CALC)); GFR FOR AFR.AMER. > 60 ML/MIN (>=60 (CALC)); POTASSIUM 3.7 mmol/l (3.5-5.1); SGOT/AST 46 u/l (9-36); SODIUM 125 mmol/l (137-146)
--- NOTE | 2020-11-10 07:45 | NUR ---
REPORT RECEIVED FROM CARMEN DIAZ. PT ASSISTED OFF OF BEDPAN FOR SCANT SOFT BOWEL MOVEMENT; ASSISTED WITH HYGIENE AND REPOSITIONED INTO BEDSIDE CHAIR. ALERT AND ORIENTED X 3. C/O SEVERE LOWER BACK PAIN. RESPIRATIONS EVEN AND UNLABORED ON HUMIDIFIED OXYGEN 2L VIA NC; SPO2 98%; LUNGS ARE CLEAR THROUGHOUT. PT IS NOT TEARFUL TODAY, BUT DOES HAVE MILD ANXIETY MOSTLY RELATED TO HER PAIN LEVEL; NO C/O SOB. #22G TO LAC APPEARS HEALTHY AND FLUSHES. SAFETY MEASURES IN PLACE. CALL LIGHT WITHIN REACH.
--- NOTE | 2020-11-10 07:54 | NUR ---
LORTAB GIVEN FOR 8/10 LOWER BACK PAIN. RT AT BEDSIDE FOR BREATHING TREATMENT.
--- NOTE | 2020-11-10 09:09 | NUR ---
DR. RO AT BEDSIDE.
[2020-11-10] MEDS ORDERED: LORTAB5 PO (11:20)
--- NOTE | 2020-11-10 11:21 | NUR ---
DIXON CATHETER REMOVED; 625ML CLEAR YELLOW URINE EMPTIED. PT EDUCATED ON RISKS OF URINARY RETENTION AND INSTRUCTED TO CALL WHEN SHE HAS THE URGE OF VOID. STATES UNDERSTANDING. NO OTHER REQUESTS OR CONCERNS AT THIS TIME.
--- NOTE | 2020-11-10 12:04 | NUR ---
IV site discontinued, cath intact. No edema , no redness, voices no discomfort. ASSISTED TO BSC FOR BOWEL MOVEMENT AND NOW SITTING UP IN BEDSIDE FOR LUNCH.
--- NOTE | 2020-11-10 12:48 | NUR ---
Discharge instructions given. Patient verbalizes understanding of same. Discharged in stable condition via Wheelchair to Home with [facility] and Oxygen 2l via NC. Daughter at bedside to accompany home. All belongings sent with pt.
== END 2020-11-10 12:48 | disposition home health service (06) | DRG 193 ==
LOC: ED 16:11 → ED-I 16:45 → ED 19:49 → ICU 19:50
PROVIDERS: Emergency Medicine; ADMIT Internal Medicine; ATTEND Internal Medicine
PROC: 0T9B70Z Drainage of Bladder with Drainage Device, Via Natural or Artificial Opening (ICD-10-PCS; principal; 2020-11-07)
DX: J18.9 Pneumonia, unspecified organism (principal); J96.01 Acute respiratory failure with hypoxia; J44.0 Chronic obstructive pulmonary disease with (acute) lower respiratory infection; I42.9 Cardiomyopathy, unspecified; E87.1 Hypo-osmolality and hyponatremia; I13.0 Hypertensive heart and chronic kidney disease with heart failure and stage 1 through stage 4 chronic kidney disease, or unspecified chronic kidney disease; I50.9 Heart failure, unspecified; N18.9 Chronic kidney disease, unspecified; E87.6 Hypokalemia; E03.9 Hypothyroidism, unspecified; E86.0 Dehydration; T43.215A Adverse effect of selective serotonin and norepinephrine reuptake inhibitors, initial encounter; K21.9 Gastro-esophageal reflux disease without esophagitis; M54.16 Radiculopathy, lumbar region; F32.9 Major depressive disorder, single episode, unspecified; F17.210 Nicotine dependence, cigarettes, uncomplicated; Z86.73 Personal history of transient ischemic attack (TIA), and cerebral infarction without residual deficits; Z86.718 Personal history of other venous thrombosis and embolism; Z20.822 Contact with and (suspected) exposure to COVID-19
CPT/HCPCS: J1650; J3370; Q9967

== ENCOUNTER 2020-11-18 11:08 | Observation (INO) | payer BC ==
[~2020-11-18] VITALS: Ht 152.4 cm; Wt 60.0 kg
[2020-11-18 12:30] LABS: HEMATOCRIT 27.8 % (37.0-47.0); HEMOGLOBIN 8.6 g/dl (12.0-16.0); IMMATURE GRANULOCYTES 2.4 % (0.0-5.0); MEAN CORPUSCULAR HGB 27.8 pG CALC (26.0-32.0); MEAN CORPUSCULAR HGB CONC 30.9 g/dL CAL (32.0-36.0); NEUT# 11.54 thou/uL (2.00-7.15); RED BLOOD COUNT 3.09 mill/uL (4.20-5.60); RED CELL DISTRI WIDTH 16.2 % (11.5-15.5)
[2020-11-18 12:44] LABS: ALKALINE PHOSPHATASE 137 u/l (38-126); BILIRUBIN, TOTAL 0.5 mg/dL (0.0-1.4); BUN 13 mg/dL (8-23); BUN/CREATININE RATIO 22 (12-20 (CALC)); CHLORIDE 98 mmol/l (95-108); CREATININE 0.6 mg/dL (0.5-1.0); ETHYL ALCOHOL 0 mg/dl (0-30); GFR > 60 ML/MIN (>=60 (CALC)); GFR FOR AFR.AMER. > 60 ML/MIN (>=60 (CALC)); LIPASE 69 u/l (23-300); POTASSIUM 3.5 mmol/l (3.5-5.1); SGOT/AST 18 u/l (9-36); SODIUM 129 mmol/l (137-146)
[2020-11-18 12:45] LABS: ALBUMIN 3.4 g/dL (3.2-5.0); ANION GAP 9 (6-22 (CALC)); CARBON DIOXIDE 26 mmol/l (22-30)
[2020-11-18 13:19] LABS: D-DIMER 1.55 mg/L (0.19-0.60)
[2020-11-18 14:17] LABS: URINE BILIRUBIN - DIPSTICK NEGATIVE (NEGATIVE); URINE BLOOD DIPSTICK NEGATIVE (NEGATIVE); URINE COLOR YELLOW; URINE GLUCOSE - DIPSTICK NEGATIVE (NEGATIVE); URINE KETONE NEGATIVE (NEGATIVE); URINE LEUK ESTERASE TRACE (NEGATIVE); URINE PROTEIN - DIPSTICK NEGATIVE (NEG-TRACE); URINE UROBILINOGEN - DIPSTICK 0.2 E.U./dL (0.2)
[2020-11-18 14:19] LABS: URINE NITRITE - DIPSTICK NEGATIVE (Negative)
[2020-11-18 20:05] VITALS: BP 159/73
[2020-11-18 23:50] VITALS: BP 137/63
[2020-11-19 04:08] VITALS: BP 142/82
[2020-11-19 05:22] LABS: HEMATOCRIT 29.2 % (37.0-47.0); HEMOGLOBIN 9.1 g/dl (12.0-16.0); IMMATURE GRANULOCYTES 2.7 % (0.0-5.0); MEAN CELL VOLUME 90.4 fL CALC (80.0-100.0); MEAN CORPUSCULAR HGB 28.2 pG CALC (26.0-32.0); MEAN CORPUSCULAR HGB CONC 31.2 g/dL CAL (32.0-36.0); NEUT# 8.44 thou/uL (2.00-7.15); RED BLOOD COUNT 3.23 mill/uL (4.20-5.60); RED CELL DISTRI WIDTH 16.4 % (11.5-15.5)
[2020-11-19 05:29] LABS: ANION GAP 10 (6-22 (CALC)); BUN 10 mg/dL (8-23); BUN/CREATININE RATIO 19 (12-20 (CALC)); CARBON DIOXIDE 25 mmol/l (22-30); CHLORIDE 99 mmol/l (95-108); CREATININE 0.5 mg/dL (0.5-1.0); GFR > 60 ML/MIN (>=60 (CALC)); GFR FOR AFR.AMER. > 60 ML/MIN (>=60 (CALC)); POTASSIUM 3.7 mmol/l (3.5-5.1); SODIUM 131 mmol/l (137-146)
[2020-11-19 07:45] VITALS: BP 151/72
[2020-11-19 10:31] VITALS: BP 99/47
[2020-11-19 15:55] VITALS: BP 126/73
[2020-11-19 19:00] VITALS: BP 108/60
[2020-11-20] VITALS: BP 130/73
[2020-11-20 04:00] VITALS: BP 134/62
[2020-11-20 05:02] LABS: HEMATOCRIT 27.9 % (37.0-47.0); HEMOGLOBIN 8.8 g/dl (12.0-16.0); MEAN CELL VOLUME 88.9 fL CALC (80.0-100.0); MEAN CORPUSCULAR HGB CONC 31.5 g/dL CAL (32.0-36.0); RED BLOOD COUNT 3.14 mill/uL (4.20-5.60); RED CELL DISTRI WIDTH 16.1 % (11.5-15.5)
[2020-11-20 05:21] LABS: ANION GAP 8 (6-22 (CALC)); BUN 10 mg/dL (8-23); BUN/CREATININE RATIO 15 (12-20 (CALC)); CARBON DIOXIDE 26 mmol/l (22-30); CHLORIDE 97 mmol/l (95-108); CREATININE 0.7 mg/dL (0.5-1.0); GFR > 60 ML/MIN (>=60 (CALC)); GFR FOR AFR.AMER. > 60 ML/MIN (>=60 (CALC)); POTASSIUM 3.6 mmol/l (3.5-5.1); SODIUM 128 mmol/l (137-146)
[2020-11-20 07:35] VITALS: BP 121/68
[2020-11-20 10:47] VITALS: BP 83/52
[2020-11-20 11:22] VITALS: BP 90/55
[2020-11-20 12:25] VITALS: BP 97/58
== END 2020-11-20 13:08 | disposition home health service (06) | DRG 312 ==
LOC: ED 11:08 → ED-I 17:51 → ED 18:06 → MS2 18:07
PROVIDERS: Emergency Medicine; Nurse Practitioner; ADMIT Internal Medicine; ATTEND Internal Medicine
DX: R55 Syncope and collapse (principal); E87.1 Hypo-osmolality and hyponatremia; I42.9 Cardiomyopathy, unspecified; I95.9 Hypotension, unspecified; D72.829 Elevated white blood cell count, unspecified; I11.0 Hypertensive heart disease with heart failure; I50.9 Heart failure, unspecified; M54.5 Low back pain; G89.29 Other chronic pain; M25.551 Pain in right hip; I25.10 Atherosclerotic heart disease of native coronary artery without angina pectoris; F32.9 Major depressive disorder, single episode, unspecified; J44.9 Chronic obstructive pulmonary disease, unspecified; K21.9 Gastro-esophageal reflux disease without esophagitis; E03.9 Hypothyroidism, unspecified; F17.200 Nicotine dependence, unspecified, uncomplicated; W18.30XA Fall on same level, unspecified, initial encounter; Z86.73 Personal history of transient ischemic attack (TIA), and cerebral infarction without residual deficits; Z20.822 Contact with and (suspected) exposure to COVID-19
CPT/HCPCS: G0378; J1650; Q9967

== ENCOUNTER 2021-02-23 13:47 | Emergency (ER) | payer BC ==
[~2021-02-23] VITALS: Ht 152.4 cm; Wt 63.6 kg
[2021-02-23 14:36] LABS: HEMATOCRIT 31.9 % (37.0-47.0); HEMOGLOBIN 10.1 g/dl (12.0-16.0); IMMATURE GRANULOCYTES 4.8 % (0.0-5.0); MEAN CELL VOLUME 90.1 fL CALC (80.0-100.0); MEAN CORPUSCULAR HGB 28.5 pG CALC (26.0-32.0); MEAN CORPUSCULAR HGB CONC 31.7 g/dL CAL (32.0-36.0); NEUT# 9.89 thou/uL (2.00-7.15); RED BLOOD COUNT 3.54 mill/uL (4.20-5.60); RED CELL DISTRI WIDTH 12.4 % (11.5-15.5)
[2021-02-23 14:45] LABS: ALKALINE PHOSPHATASE 74 u/l (38-126); ANION GAP 8 (6-22 (CALC)); BUN 19 mg/dL (8-23); BUN/CREATININE RATIO 24 (12-20 (CALC)); CARBON DIOXIDE 26 mmol/l (22-30); CHLORIDE 101 mmol/l (95-108); CREATININE 0.8 mg/dL (0.5-1.0); GFR > 60 ML/MIN (>=60 (CALC)); GFR FOR AFR.AMER. > 60 ML/MIN (>=60 (CALC)); MAGNESIUM 2.1 mg/dL (1.6-2.3); POTASSIUM 3.2 mmol/l (3.5-5.1); SGOT/AST 17 u/l (9-36); SODIUM 131 mmol/l (137-146)
[2021-02-23 14:47] LABS: ACT PARTIAL THROMBO TIME 22.4 SECONDS (20.0-32.5); ALBUMIN 2.7 g/dL (3.2-5.0); PROTHROMBIN TIME 10.2 SECONDS (9.0-12.5)
[2021-02-23 15:51] LABS: URINE BILIRUBIN - DIPSTICK NEGATIVE (NEGATIVE); URINE BLOOD DIPSTICK NEGATIVE (NEGATIVE); URINE COLOR YELLOW; URINE GLUCOSE - DIPSTICK NEGATIVE (NEGATIVE); URINE KETONE NEGATIVE (NEGATIVE); URINE LEUK ESTERASE NEGATIVE (NEGATIVE); URINE NITRITE - DIPSTICK NEGATIVE (Negative); URINE PH 7.5 (4.5-8.0); URINE PROTEIN - DIPSTICK NEGATIVE (NEG-TRACE); URINE UROBILINOGEN - DIPSTICK 0.2 E.U./dL (0.2)
[2021-02-23 19:50] VITALS: BP 142/66
== END 2021-02-23 19:00 | disposition short-term general hospital (02) | DRG 536 ==
LOC: ED 13:47
DX: S32.502A Unspecified fracture of left pubis, initial encounter for closed fracture (principal); I42.9 Cardiomyopathy, unspecified; I11.0 Hypertensive heart disease with heart failure; I50.9 Heart failure, unspecified; J45.909 Unspecified asthma, uncomplicated; X58.XXXA Exposure to other specified factors, initial encounter; Z86.73 Personal history of transient ischemic attack (TIA), and cerebral infarction without residual deficits; Z86.718 Personal history of other venous thrombosis and embolism; Z20.822 Contact with and (suspected) exposure to COVID-19

== ENCOUNTER 2021-06-10 11:40 | Emergency (ER) | payer BC ==
[~2021-06-10] VITALS: Ht 152.4 cm; Wt 70.0 kg
[2021-06-10 13:22] LABS: HEMATOCRIT 28.6 % (37.0-47.0); HEMOGLOBIN 9.1 g/dl (12.0-16.0); IMMATURE GRANULOCYTES 1.9 % (0.0-5.0); MEAN CELL VOLUME 88.5 fL CALC (80.0-100.0); MEAN CORPUSCULAR HGB 28.2 pG CALC (26.0-32.0); MEAN CORPUSCULAR HGB CONC 31.8 g/dL CAL (32.0-36.0); NEUT# 14.17 thou/uL (2.00-7.15); RED BLOOD COUNT 3.23 mill/uL (4.20-5.60); RED CELL DISTRI WIDTH 14.6 % (11.5-15.5)
[2021-06-10 13:38] LABS: BUN 13 mg/dL (8-23); BUN/CREATININE RATIO 20 (12-20 (CALC)); CARBON DIOXIDE 30 mmol/l (22-30); CHLORIDE 93 mmol/l (95-108); CREATININE 0.6 mg/dL (0.5-1.0); GFR > 60 ML/MIN (>=60 (CALC)); GFR FOR AFR.AMER. > 60 ML/MIN (>=60 (CALC)); SODIUM 129 mmol/l (137-146)
[2021-06-10 13:39] LABS: ALBUMIN 3.9 g/dL (3.2-5.0); ALKALINE PHOSPHATASE 151 u/l (38-126); ANION GAP 10 (6-22 (CALC)); BILIRUBIN, TOTAL 0.4 mg/dL (0.0-1.4); SGOT/AST 44 u/l (9-36); TOTAL PROTEIN 7.2 g/dL (6.3-8.2)
[2021-06-10 17:48] VITALS: BP 172/71
--- NOTE | 2021-06-12 08:04 | NUR ---
PRELIMINARY BLOOD CULTURE RESULTS SHOWS GRAM POSITIVE COCCI IN 1/4 VIALS. CALLED [facility] AND FAXED RESULTS TO JULIA CALZADA AT [phone].
--- NOTE | 2021-06-13 11:57 | NUR ---
Final blood cultures show Staph. Hominis. Pt was transferred to [facility], faxed final results to abiel DUMONT at [phone].
== END 2021-06-10 17:48 | disposition short-term general hospital (02) | DRG 536 ==
LOC: ED 11:40
PROVIDERS: Family Medicine
DX: S72.002A Fracture of unspecified part of neck of left femur, initial encounter for closed fracture (principal); D72.829 Elevated white blood cell count, unspecified; I42.9 Cardiomyopathy, unspecified; J44.9 Chronic obstructive pulmonary disease, unspecified; I11.0 Hypertensive heart disease with heart failure; I50.9 Heart failure, unspecified; E66.9 Obesity, unspecified; F17.200 Nicotine dependence, unspecified, uncomplicated; W01.0XXA Fall on same level from slipping, tripping and stumbling without subsequent striking against object, initial encounter; Y92.009 Unspecified place in unspecified non-institutional (private) residence as the place of occurrence of the external cause; Z86.73 Personal history of transient ischemic attack (TIA), and cerebral infarction without residual deficits; Z88.0 Allergy status to penicillin; Z20.822 Contact with and (suspected) exposure to COVID-19

== ENCOUNTER 2021-09-03 08:21 | Inpatient (IN) | payer MEDICARE ==
[2021-09-03] VITALS (10 sets, daily range): BP systolic 136–181; BP diastolic 69–92
[~2021-09-03] VITALS: Ht 152.4 cm; Wt 70.0 kg
[~2021-09-03 08:21] MED LIST changes: -LEVOTHYROXIN112 MC1 PO; +LEVOTHYROXIN137 MCG PO
[2021-09-03 08:51] LABS: HEMATOCRIT 31.6 % (37.0-47.0); HEMOGLOBIN 10.9 g/dl (12.0-16.0); IMMATURE GRANULOCYTES 0.6 % (0.0-5.0); MEAN CORPUSCULAR HGB 28.5 pG CALC (26.0-32.0); MEAN CORPUSCULAR HGB CONC 34.5 g/dL CAL (32.0-36.0); NEUT# 8.22 thou/uL (2.00-7.15); RED BLOOD COUNT 3.82 mill/uL (4.20-5.60); RED CELL DISTRI WIDTH 13.4 % (11.5-15.5)
--- NOTE | 2021-09-03 08:52 | NUR ---
PT ESCORTED TO ROOM 10 FOR EVALUATION OF SOB COUGH VIA EMS
[2021-09-03 08:55] LABS: MEAN CELL VOLUME 82.7 fL CALC (80.0-100.0)
[2021-09-03 09:08] LABS: ALBUMIN 3.8 g/dL (3.2-5.0); ALKALINE PHOSPHATASE 80 u/l (38-126); BILIRUBIN, TOTAL 0.4 mg/dL (0.0-1.4); BUN 8 mg/dL (8-23); BUN/CREATININE RATIO 12 (12-20 (CALC)); CARBON DIOXIDE 26 mmol/l (22-30); CREATININE 0.6 mg/dL (0.5-1.0); GFR > 60 ML/MIN (>=60 (CALC)); GFR FOR AFR.AMER. > 60 ML/MIN (>=60 (CALC)); LIPASE 49 u/l (23-300); SGOT/AST 24 u/l (9-36); TOTAL PROTEIN 6.7 g/dL (6.3-8.2)
[2021-09-03 09:10] LABS: ANION GAP 12 (6-22 (CALC)); CHLORIDE 78 mmol/l (95-108)
[2021-09-03 09:11] LABS: POTASSIUM 2.4 mmol/l (3.5-5.1); SODIUM 114 mmol/l (137-146)
[2021-09-03 10:06] LABS: BUN 7 mg/dL (8-23); BUN/CREATININE RATIO 13 (12-20 (CALC)); CARBON DIOXIDE 24 mmol/l (22-30); CHLORIDE 80 mmol/l (95-108); CREATININE 0.6 mg/dL (0.5-1.0); GFR > 60 ML/MIN (>=60 (CALC)); GFR FOR AFR.AMER. > 60 ML/MIN (>=60 (CALC)); POTASSIUM 2.8 mmol/l (3.5-5.1)
--- NOTE | 2021-09-03 10:06 | NUR ---
PT ADVISED OF POC. PT REPORTS PAIN IMPROVED, VSS. SKIN PWD, BREATHING UNLABORED AND EVEN. LUNGS CLEAR TO AUSCULTATION. PT STABLE.
[2021-09-03 10:09] LABS: ANION GAP 15 (6-22 (CALC))
[2021-09-03 10:10] LABS: SODIUM 116 mmol/l (137-146)
--- NOTE | 2021-09-03 11:05 | NUR ---
IV IN LAC REMOVED DUE TO LEAKING. MEDICATION STOPPED AT THIS TIME.
--- NOTE | 2021-09-03 11:10 | NUR ---
PIV IN RIGHT HAND 22G STARTED, GOOD BLOOD RETURN, FLUSHES WELL. MEDICATION RESUMED. PT TOLERATED WELL. PT AWARE OF ADMISSION.
--- NOTE | 2021-09-03 11:21 | NUR ---
SBAR REPORT CALLED TO [facility] ICU. PT TO GO TO ROOM 5.
--- NOTE | 2021-09-03 11:38 | NUR ---
PT TAKEN TO ICU VIA EMS STRETCHER CONNECTED TO ZOLL MONITOR. PT STABLE AT TIME OF ADMISSION. PT'S BELONGINGS AND PAPERWORK HANDED OFF TO [facility] SIMMONS.
[2021-09-03] MEDS ORDERED: FOLIC ACID1 MG PO (11:49)
[2021-09-03] MEDS ORDERED: ATORVASTATIN CA80 MG PO (11:49)
[2021-09-03] MEDS ORDERED: LOSARTAN POTASS50 MG PO (11:50)
[2021-09-03] MEDS ORDERED: BUSPAR5 MG PO (11:51)
[2021-09-03] MEDS ORDERED: [UNRECOGNIZED DRUG - CODE] PO (11:55)
--- NOTE | 2021-09-03 13:00 | NUR ---
PT ARRIVES TO ICU 5 VIA STRETCHER ACCOMPANIED BY ER NURSE IGNACIO. PT IS ALERT AND ORIENTED X 3, LUNGS CLEAR, RA. PT ABLE TO BEAR HER WEIGHT DURING TRANSFERS. BSC AT BEDSIDE. LUNCH PROVIDED.
[2021-09-03 14:00] LABS: ANION GAP 11 (6-22 (CALC)); BUN 6 mg/dL (8-23); BUN/CREATININE RATIO 10 (12-20 (CALC)); CARBON DIOXIDE 26 mmol/l (22-30); CHLORIDE 83 mmol/l (95-108); CREATININE 0.6 mg/dL (0.5-1.0); GFR > 60 ML/MIN (>=60 (CALC)); GFR FOR AFR.AMER. > 60 ML/MIN (>=60 (CALC)); POTASSIUM 2.8 mmol/l (3.5-5.1)
[2021-09-03 14:03] LABS: SODIUM 117 mmol/l (137-146)
--- NOTE | 2021-09-03 15:21 | NUR ---
PT RECEIVES MAGNESIUM AND POTASSIUM BOLUSES. PT ALLOWED TO USE BSC, WILL CALL IF SHE NEEDS HELP. NO DISTRESS, NO ARRYTHMIAS.
[2021-09-03 18:28] LABS: ANION GAP 10 (6-22 (CALC)); BUN 5 mg/dL (8-23); BUN/CREATININE RATIO 9 (12-20 (CALC)); CARBON DIOXIDE 25 mmol/l (22-30); CHLORIDE 87 mmol/l (95-108); CREATININE 0.5 mg/dL (0.5-1.0); GFR > 60 ML/MIN (>=60 (CALC)); GFR FOR AFR.AMER. > 60 ML/MIN (>=60 (CALC)); POTASSIUM 2.6 mmol/l (3.5-5.1); SODIUM 120 mmol/l (137-146)
--- NOTE | 2021-09-03 19:37 | NUR ---
DR VALENCIA PHONED TO CHECK ON PATIENT, INFORMED OF POTASSIUM LEVEL OF 2.6 AT 1800. NEW ORDERS RECEIVED.
--- NOTE | 2021-09-03 19:40 | NUR ---
RESTING IN BED, WATCHING TV. ALERT AND ORIENTED. RESP NON-LABORED. LUNGS CLEAR. O2 SAT 100% ON RA. ABD SOFT WITH BOWEL SOUNDS PRESENT. RH IV SITE INTACT NS DC'D PER DR'S ORDERS AND SITE SALINE LOCKED. RAC SALINE LOCK, EMS SITE. PATIENT USES BSC INDEPENDENTLY. SITE ACQUISITION MANAGER SHOWS SR. DISCUSSED PLAN OF CARE. DENIES NEEDS AT THIS TIME. CALL PRUITT IN REACH.
--- NOTE | 2021-09-03 20:12 | NUR ---
MEDICATED WITH ZOFRAN 4 MG IVP FOR C/O NAUSEA.
--- NOTE | 2021-09-03 21:55 | NUR ---
VSS. PATIENT UP TO C TO VOID FREQ, STATES THIS IS NORMAL FOR HER. DENIES ANY BURNING OR DISCOMFORTS WITH URINATION. ADVISED PATIENT OF NEED FOR UA.
[2021-09-03 22:17] LABS: ANION GAP 11 (6-22 (CALC)); BUN 6 mg/dL (8-23); BUN/CREATININE RATIO 12 (12-20 (CALC)); CARBON DIOXIDE 23 mmol/l (22-30); CHLORIDE 87 mmol/l (95-108); CREATININE 0.5 mg/dL (0.5-1.0); GFR > 60 ML/MIN (>=60 (CALC)); GFR FOR AFR.AMER. > 60 ML/MIN (>=60 (CALC)); POTASSIUM 2.9 mmol/l (3.5-5.1)
[2021-09-03 22:26] LABS: SODIUM 118 mmol/l (137-146)
--- NOTE | 2021-09-03 23:50 | NUR ---
PATIENT HAD LARGE LOOSE DARK BROWN STOOL. SPEC OBTAINED FOR GI PANEL AND SENT TO LAB.
[2021-09-04] VITALS (8 sets, daily range): BP systolic 111–159; BP diastolic 59–87
--- NOTE | 2021-09-04 02:00 | NUR ---
SLEEPING SOUNDLY AT THIS TIME. VSS. RESP NON-LABORED. SR.
--- NOTE | 2021-09-04 03:18 | NUR ---
MEDICATED WITH ZOFRAN FOR X/O NAUSEA.
--- NOTE | 2021-09-04 04:18 | NUR ---
RESTING QUIETLY IN BED. VSS. RESP NON-LABORED. SR ON MONITOR.
[2021-09-04 05:49] LABS: HEMATOCRIT 33.8 % (37.0-47.0); HEMOGLOBIN 11.4 g/dl (12.0-16.0); MEAN CELL VOLUME 84.9 fL CALC (80.0-100.0); MEAN CORPUSCULAR HGB 28.6 pG CALC (26.0-32.0); MEAN CORPUSCULAR HGB CONC 33.7 g/dL CAL (32.0-36.0); RED BLOOD COUNT 3.98 mill/uL (4.20-5.60); RED CELL DISTRI WIDTH 13.7 % (11.5-15.5)
--- NOTE | 2021-09-04 06:00 | NUR ---
CLONOPIN GIVEN FOR ANXIETY ORDERED AND TYLENOL 650 MG PO FOR C/O HEADACHE.
[2021-09-04 06:27] LABS: ANION GAP 12 (6-22 (CALC)); BUN 5 mg/dL (8-23); BUN/CREATININE RATIO 10 (12-20 (CALC)); CARBON DIOXIDE 24 mmol/l (22-30); CHLORIDE 89 mmol/l (95-108); CREATININE 0.5 mg/dL (0.5-1.0); GFR > 60 ML/MIN (>=60 (CALC)); GFR FOR AFR.AMER. > 60 ML/MIN (>=60 (CALC)); MAGNESIUM 2.3 mg/dL (1.6-2.3); POTASSIUM 3.2 mmol/l (3.5-5.1); SODIUM 122 mmol/l (137-146)
[2021-09-04 08:57] LABS: TSH, 3RD GENERATION 10.3 uIU/mL (0.47 - 4.68)
--- NOTE | 2021-09-04 09:00 | NUR ---
PT SEEN AWAKE, ALERT, ORIENTED X 3. PT ABLE TO USE BSC WITHOUT ASSIST. PT UPDATED ON LATEST RESULTS. IVF INFUSING.
--- NOTE | 2021-09-04 12:44 | NUR ---
PT MEDICATED FOR HEADACHE, SEEN AT REST IN THE BED IN NO ACUTE DISTRESS. NS AT 100 ML/HR.
--- NOTE | 2021-09-04 15:20 | NUR ---
PT HAS BEEN TO SMALL BOWEL SERIES AND BACK. DR MEMBRENO HAD BEEN IN TO SEE HER AND ORDERED IT. PT TO BE TRANSFERRED TO MED/SURG, REPORT HAS BEEN PROVIDED TO ERNIE.
--- NOTE | 2021-09-04 15:20 | NUR ---
REPORT RECIEVED FROM STAFF OCCUPATIONAL THERAPIST TROY
--- NOTE | 2021-09-04 15:40 | NUR ---
PT TAKEN TO ROOM 279 VIA WHEELCHAIR.
--- NOTE | 2021-09-04 15:50 | NUR ---
PT ARRIVED VIA WC WITH [facility]. ABLE TO AMBULATE 1 ASSIST TO BED. BSC NEAR BED. IV RH 22G. ORIENTATED PT TO ROOM/ CALL PRUITT. STATES NO PAIN AT THIS TIME. FALL/SAFTEY PRECAUTIONS IN PLACE. CALL LIGHT IS WITHIN REACH
[2021-09-05 00:08] VITALS: BP 153/78
[2021-09-05 04:00] VITALS: BP 150/72
[2021-09-05 05:28] LABS: HEMATOCRIT 31.4 % (37.0-47.0); HEMOGLOBIN 10.1 g/dl (12.0-16.0); MEAN CELL VOLUME 88.2 fL CALC (80.0-100.0); MEAN CORPUSCULAR HGB 28.4 pG CALC (26.0-32.0); MEAN CORPUSCULAR HGB CONC 32.2 g/dL CAL (32.0-36.0); RED BLOOD COUNT 3.56 mill/uL (4.20-5.60); RED CELL DISTRI WIDTH 14.4 % (11.5-15.5)
[2021-09-05 05:49] LABS: ANION GAP 11 (6-22 (CALC)); BUN 7 mg/dL (8-23); BUN/CREATININE RATIO 15 (12-20 (CALC)); CARBON DIOXIDE 20 mmol/l (22-30); CHLORIDE 97 mmol/l (95-108); CREATININE 0.5 mg/dL (0.5-1.0); GFR > 60 ML/MIN (>=60 (CALC)); GFR FOR AFR.AMER. > 60 ML/MIN (>=60 (CALC)); MAGNESIUM 2.1 mg/dL (1.6-2.3); POTASSIUM 2.9 mmol/l (3.5-5.1); SODIUM 125 mmol/l (137-146)
--- NOTE | 2021-09-05 06:59 | NUR ---
NOTIFIED PULP HOUSE SUPERVISOR OF LOW POTASSIUM AT 2.9 AND SLIGHTLY IMPROVING SODIUM AT 125 FROM 122. MESSAGE SENT. REPORT PASSED TO Yoni GONZALEZ RN
[2021-09-05 08:00] VITALS: BP 145/73
--- NOTE | 2021-09-05 08:00 | NUR ---
ASSESSMENT AND VITALS ALLOWED AT THIS TIME. PT STATES NO PAIN AT THIS TIME. IV LOCATED RH 22G IVF INFUSING PER EMAR. PT STATES STILL HAVING FREQUENT DIAHREA. TELE MONITOR IN PLACE. CONTINOUS MONITORING BY ED. STATES NO OTHER NEEDS AT THIS TIME. FALL/SAFTEY PRECAUTIONS IN PLACE. CALL LIGHT IS WITHIN REACH.
[2021-09-05 11:03] VITALS: BP 155/69
--- NOTE | 2021-09-05 12:22 | NUR ---
PT EATING LUNCH AT THIS TIME. PT COMPLAINS OF HEADACHE. MOTRIN GIVEN. PT STATES NO OTHER NEEDS AT THIS TIME. FALL/SAFTEY PRECAUTIONS WITHIN PLACE. CALL LIGHT IS WITHIN REACH.
--- NOTE | 2021-09-05 12:29 | NUR ---
DR. BRINK AT BEDSIDE
[2021-09-05 15:53] VITALS: BP 146/64
--- NOTE | 2021-09-05 16:23 | NUR ---
PT RESTING IN BED COMFORTABLY AT THIS TIME. STATES STILL HAVING HEADACHE. FALL/SAFTEY PRECUATION IN PLACE. CALL LIGHT IS WITHIN REACH.
[2021-09-05 19:00] VITALS: BP 171/77
--- NOTE | 2021-09-05 21:00 | NUR ---
PATIENT RESTING IN BED AT THIS TIME-AWAKE ALERT AND STILL C/O SEVERE HEADACHE. MEDICATED WITH KLONIPIN 0.5MG PO FOR ANXIETY AND WITH MOTRIN FOR PAIN. TELE MONITOR IN PLACE-LAST READING WAS SR-83. IVF NS PATENT AND INFUSING VIA RIGHT HAND SITE AT 1`00CC/HR. SITE REMAINS HEALTHY AT THIS TIME.SAFETY PRECAUTION REINFORCED. CALL LIGHT IN REACH. WILL CONT TO MONITOR.
--- NOTE | 2021-09-05 23:00 | NUR ---
PATIENT RESTING IN BED-MEDICATED WITH KCL 40MEQ PO ORDERED AND GIVEN PHENERGAN 12.5MG IN NS 50CC IVP ORDERED FOR NAUSEA. CONT TO C/O HEADACHE. SAFETY PRECAUTIONS REINFORCED. CALL LIGHT IN REACH. WILL CONT TO MONITOR.
[2021-09-06] VITALS: BP 174/81
--- NOTE | 2021-09-06 00:09 | NUR ---
PATIENT UP TO THE BSC-STATES THAT HER HEADACHE HAS IMPROVED AND THAT HER NAUSEA IS ALSO BETTER. STILL FEELING WEAK. IVF PATENT AND INFUSING VIA RIGHT HAND SITE AT 100CC/HR. TELE MONITOR REMAINS IN PLACE. SAFETY PRECAUTIONS REINFORCED. CALL LIGHT IN REACH. WILL CONT TO MONITOR.
--- NOTE | 2021-09-06 02:46 | NUR ---
PATIENT APPEARS SLEEPING AT THIS TIME WITH EYES CLOSED. RESPS ARE EVEN AND UNLABORED. IVF NS PATENT AND INFUSING VIA RIGHT HAND SITE. TELE MONITOR IN PLACE. CALL LIGHT IN REACH. WILL CONT TO MONITOR.
[2021-09-06 04:00] VITALS: BP 169/82
--- NOTE | 2021-09-06 04:05 | NUR ---
PATIENT RESTING IN BED AT THIS TIME WITH EYES CLOSED. RESPS ARE EVEN AND UNLABORED. IVF NS PATENT AND INFUSING AT 100CC/HR VIA RIGHT HAND SITE. TELE MONITOR IN PLACE. CALL LIGHT IN REACH. WILL CONT TO MONITOR.
[2021-09-06 05:07] LABS: HEMATOCRIT 30.1 % (37.0-47.0); HEMOGLOBIN 9.7 g/dl (12.0-16.0); MEAN CELL VOLUME 87.8 fL CALC (80.0-100.0); MEAN CORPUSCULAR HGB 28.3 pG CALC (26.0-32.0); MEAN CORPUSCULAR HGB CONC 32.2 g/dL CAL (32.0-36.0); RED BLOOD COUNT 3.43 mill/uL (4.20-5.60); RED CELL DISTRI WIDTH 14.2 % (11.5-15.5)
[2021-09-06 05:11] LABS: ALBUMIN 3.3 g/dL (3.2-5.0); BUN 22 mg/dL (8-23); CARBON DIOXIDE 23 mmol/l (22-30); CHLORIDE 100 mmol/l (95-108); CREATININE 0.5 mg/dL (0.5-1.0); GFR > 60 ML/MIN (>=60 (CALC)); GFR FOR AFR.AMER. > 60 ML/MIN (>=60 (CALC)); MAGNESIUM 1.7 mg/dL (1.6-2.3); SODIUM 130 mmol/l (137-146)
[2021-09-06 05:16] LABS: POTASSIUM 3.6 mmol/l (3.5-5.1)
--- NOTE | 2021-09-06 06:13 | NUR ---
PATIENT RESTING IN BED AT THIS TIME-MEDICATED WITH TYROID MEDS. PATIENT INSTRUCTED THAT WE NEED URINE SPEC WHEN SHE IS ABLE TO PROVIDE. VERBALIZES UNDERSTANDING. IVF PATENT AND INFUSING VIA RIGHT HAND SITE AT 100CC/HR. TELE MONITOR IN PLACE. SAFETY PRECAUTIONS REINFORCED. CALL LIGHT IN REACH. WILL CONT TO MONITOR.
[2021-09-06 07:02] LABS: URINE BILIRUBIN - DIPSTICK NEGATIVE (NEGATIVE); URINE BLOOD DIPSTICK NEGATIVE (NEGATIVE); URINE COLOR YELLOW; URINE GLUCOSE - DIPSTICK NEGATIVE (NEGATIVE); URINE KETONE NEGATIVE (NEGATIVE); URINE LEUK ESTERASE NEGATIVE (NEGATIVE); URINE PH 7.5 (4.5-8.0); URINE PROTEIN - DIPSTICK NEGATIVE (NEG-TRACE); URINE SPECIFIC GRAVITY 1.015; URINE UROBILINOGEN - DIPSTICK 0.2 E.U./dL (0.2)
[2021-09-06 07:05] LABS: URINE NITRITE - DIPSTICK NEGATIVE (Negative)
--- NOTE | 2021-09-06 08:00 | NUR ---
SHIFT CHANGE REPORT, PT AWAKE ALERT AND ORIENTED, C/O HEADACHE, ISSUE ADDRESSED, IVF INFUSING, TELE MONITOR IN PLACE, CALL PRUITT IN REACH AND BED LOCKED IN LOWEST POSITION.
[2021-09-06 09:06] VITALS: BP 157/72
[2021-09-06] MEDS ORDERED: SOD CHLORIDE1 GM PO (10:16)
[2021-09-06] MEDS ORDERED: KLOR-CON M2020 MEQ PO (10:22)
[2021-09-06 11:07] VITALS: BP 146/65
--- NOTE | 2021-09-06 12:00 | NUR ---
RESTING IN BED, MD ROUNDED AND DISCUSSED D/C PLANS, PT REPORTED TO NURSE MICHELINE SHE DIDNT THINK MD WOULD SEND HER HOME SO SOON. EDUCATED/ADVISED ON RISK OF INFECTIONS OCCURRING FROM UNNECESSARY EXTENDED STAYS IN HOSPITALS. INFORMED ELECTROLYTES IMPROVED VERY WELL AND SHE DIDNT NEED ADDITIONAL CARE HERE, PT STATED UNDERSTANDING.
--- NOTE | 2021-09-06 15:23 | NUR ---
Discharge instructions given. Patient verbalizes understanding of same. Discharged in stable condition via Wheelchair to Home with family. All belongings sent with pt.
--- NOTE | 2021-09-06 15:58 | NUR ---
Subjective: Patient states that her stomach still aches. Objective: Patient did the following: Patient did B LE seated AROM exercises: hip flexion, hip adduction, hip abduction, hamstring curls, knee extension, and ankle pumps for 2 x 10 reps with 1 to 2 rest periods. Patient also did bed mobility, transfers, and gait ADLs with SBA x 1 covering approximately 15 feet x 2 reps. Assessment: Patient exhibiting improving gait capability due to improving muscle strength and endurance from undergoing PT intervention. Plan: Patient to continue doing HEP after discharge to home to help maintain functional gains acquired while undergoing PT intervention. Am Pac score of 14 points, discharge recommendation will be home health intervention.
== END 2021-09-06 15:23 | disposition home health service (06) | DRG 641 ==
LOC: ED 08:21 → ED-I 10:10 → ED 10:43 → ICU 10:44 → MS2 09-04 15:41
PROVIDERS: Family Medicine; Nurse Practitioner; ADMIT Hospitalist; ATTEND Internal Medicine
DX: E87.1 Hypo-osmolality and hyponatremia (principal); E87.6 Hypokalemia; E86.0 Dehydration; E87.8 Other disorders of electrolyte and fluid balance, not elsewhere classified; R11.2 Nausea with vomiting, unspecified; R19.7 Diarrhea, unspecified; R07.9 Chest pain, unspecified; U09.9 Post COVID-19 condition, unspecified; I11.0 Hypertensive heart disease with heart failure; I50.9 Heart failure, unspecified; J44.9 Chronic obstructive pulmonary disease, unspecified; E03.9 Hypothyroidism, unspecified; D64.9 Anemia, unspecified; F41.9 Anxiety disorder, unspecified; F32.A Depression, unspecified; K21.9 Gastro-esophageal reflux disease without esophagitis; F17.200 Nicotine dependence, unspecified, uncomplicated; Z86.73 Personal history of transient ischemic attack (TIA), and cerebral infarction without residual deficits; Z20.822 Contact with and (suspected) exposure to COVID-19
CPT/HCPCS: G0378; J1650; J1756; J3475; Q9967

== ENCOUNTER 2022-10-29 14:40 | Emergency (ER) | payer MEDICARE ==
[~2022-10-29] VITALS: Ht 152.4 cm; Wt 77.6 kg
[2022-10-29] VITALS (7 sets, daily range): BP systolic 131–152; BP diastolic 55–69
[~2022-10-29 14:40] MED LIST changes: +ATORVASTATIN CA80 MG PO; +BUSPAR5 MG PO; +CITALOPRAM40 M1 PO; +FOLIC ACID1 MG PO; +KLOR-CON M2020 MEQ PO; +LOSARTAN POTASS50 MG PO; +MULTI VITAMIN1 TAB PO; +ONDANSETRON4 MG PO; +PROAIR HFA108 MCG/AC; +PROBIOTI2 PO; +[UNRECOGNIZED DRUG - CODE] PO
[2022-10-29] MEDS ORDERED: TYLENOL # 31 TA1 PO (21:39)
== END 2022-10-29 22:03 | disposition home or self-care (01) ==
LOC: ED 14:40
DX: S39.012A Strain of muscle, fascia and tendon of lower back, initial encounter (principal); M25.552 Pain in left hip; I11.0 Hypertensive heart disease with heart failure; I50.9 Heart failure, unspecified; I42.9 Cardiomyopathy, unspecified; J45.909 Unspecified asthma, uncomplicated; F17.200 Nicotine dependence, unspecified, uncomplicated; W18.39XA Other fall on same level, initial encounter; Z86.73 Personal history of transient ischemic attack (TIA), and cerebral infarction without residual deficits; Z91.14 Patient's other noncompliance with medication regimen

== ENCOUNTER 2022-11-09 10:08 | Observation (INO) | payer MEDICARE ==
[2022-11-09] VITALS (21 sets, daily range): BP systolic 158–191; BP diastolic 54–91
[~2022-11-09] VITALS: Ht 152.4 cm; Wt 118.0 kg
[~2022-11-09 10:08] MED LIST changes: +TYLENOL # 31 TA1 PO
[2022-11-09 10:57] LABS: BASO% 0.2 % (0-3); EOS% 0.6 % (0-8); HEMATOCRIT 33.5 % (37.0-47.0); HEMOGLOBIN 10.7 g/dl (12.0-16.0); IMMATURE GRANULOCYTES 2.6 % (0.0-5.0); MEAN CORPUSCULAR HGB 24.9 pG CALC (26.0-32.0); MEAN CORPUSCULAR HGB CONC 31.9 g/dL CAL (32.0-36.0); MONO% 7.4 % (2-13); NEUT# 10.19 thou/uL (2.00-7.15); NEUT% 80.2 % (42-76); RED BLOOD COUNT 4.29 mill/uL (4.20-5.60); RED CELL DISTRI WIDTH 13.5 % (11.5-15.5); URINE BILIRUBIN - DIPSTICK NEGATIVE (NEGATIVE); URINE BLOOD DIPSTICK TRACE-INTACT (NEGATIVE); URINE COLOR YELLOW; URINE GLUCOSE - DIPSTICK NEGATIVE (NEGATIVE); URINE KETONE NEGATIVE (NEGATIVE); URINE LEUK ESTERASE SMALL (NEGATIVE); URINE NITRITE - DIPSTICK NEGATIVE (Negative); URINE PROTEIN - DIPSTICK NEGATIVE (NEG-TRACE); URINE UROBILINOGEN - DIPSTICK 0.2 E.U./dL (0.2)
[2022-11-09 10:58] LABS: MEAN CELL VOLUME 78.1 fL CALC (80.0-100.0)
[2022-11-09 11:07] LABS: URINE BACTERIA FEW hpf; URINE RBC 0-2 RBC/hpf (0-5)
[2022-11-09 12:43] LABS: ALKALINE PHOSPHATASE 108 u/l (38-126); BILIRUBIN, TOTAL 0.3 mg/dL (0.02-1.3); BUN 5 mg/dL (8-23); BUN/CREATININE RATIO 10 (12-20 (CALC)); CREATININE 0.5 mg/dL (0.5-1.0); GFR FOR AFR.AMER. > 60 ML/MIN (>=60 (CALC)); GFR OTHER RACES > 60 ML/MIN (>=60 (CALC)); SGOT/AST 27 u/l (9-36); SODIUM 128 mmol/l (137-146); TOTAL PROTEIN 6.9 g/dL (6.3-8.2)
[2022-11-09 12:44] LABS: ANION GAP 7 (6-22 (CALC)); CARBON DIOXIDE 39 mmol/l (22-30); CHLORIDE 85 mmol/l (95-108); POTASSIUM 2.7 mmol/l (3.5-5.1)
[2022-11-10] VITALS (7 sets, daily range): BP systolic 165–191; BP diastolic 66–80
[2022-11-10 05:19] LABS: BASO% 0.3 % (0-3); EOS% 0.5 % (0-8); HEMATOCRIT 30.2 % (37.0-47.0); HEMOGLOBIN 9.6 g/dl (12.0-16.0); LYMPH% 12.4 % (15-41); MEAN CELL VOLUME 79.5 fL CALC (80.0-100.0); MEAN CORPUSCULAR HGB 25.3 pG CALC (26.0-32.0); MEAN CORPUSCULAR HGB CONC 31.8 g/dL CAL (32.0-36.0); MONO% 9.2 % (2-13); NEUT# 9.65 thou/uL (2.00-7.15); NEUT% 75.6 % (42-76); RED BLOOD COUNT 3.8 mill/uL (4.20-5.60); RED CELL DISTRI WIDTH 13.6 % (11.5-15.5)
[2022-11-10 05:32] LABS: ALBUMIN 3.4 g/dL (3.2-5.0); ALKALINE PHOSPHATASE 98 u/l (38-126); ANION GAP 9 (6-22 (CALC)); BUN 3 mg/dL (8-23); BUN/CREATININE RATIO 6 (12-20 (CALC)); CARBON DIOXIDE 33 mmol/l (22-30); CHLORIDE 90 mmol/l (95-108); CREATININE 0.5 mg/dL (0.5-1.0); GFR FOR AFR.AMER. > 60 ML/MIN (>=60 (CALC)); GFR OTHER RACES > 60 ML/MIN (>=60 (CALC)); MAGNESIUM 1.9 mg/dL (1.6-2.3); POTASSIUM 2.9 mmol/l (3.5-5.1); SGOT/AST 21 u/l (9-36); SODIUM 128 mmol/l (137-146); TOTAL PROTEIN 5.7 g/dL (6.3-8.2)
[2022-11-11] VITALS (8 sets, daily range): BP systolic 164–188; BP diastolic 64–85
[2022-11-11 05:42] LABS: BASO% 0.4 % (0-3); EOS% 0.7 % (0-8); HEMATOCRIT 33.4 % (37.0-47.0); HEMOGLOBIN 10.5 g/dl (12.0-16.0); IMMATURE GRANULOCYTES 2.1 % (0.0-5.0); LYMPH% 10.3 % (15-41); MEAN CELL VOLUME 79.1 fL CALC (80.0-100.0); MEAN CORPUSCULAR HGB 24.9 pG CALC (26.0-32.0); MEAN CORPUSCULAR HGB CONC 31.4 g/dL CAL (32.0-36.0); MONO% 6.4 % (2-13); NEUT# 13.47 thou/uL (2.00-7.15); NEUT% 80.1 % (42-76); RED BLOOD COUNT 4.22 mill/uL (4.20-5.60); RED CELL DISTRI WIDTH 13.7 % (11.5-15.5)
[2022-11-11 05:53] LABS: ALBUMIN 3.7 g/dL (3.2-5.0); ALKALINE PHOSPHATASE 110 u/l (38-126); BUN 4 mg/dL (8-23); BUN/CREATININE RATIO 7 (12-20 (CALC)); CARBON DIOXIDE 31 mmol/l (22-30); CHLORIDE 91 mmol/l (95-108); CREATININE 0.5 mg/dL (0.5-1.0); GFR FOR AFR.AMER. > 60 ML/MIN (>=60 (CALC)); GFR OTHER RACES > 60 ML/MIN (>=60 (CALC)); MAGNESIUM 2.1 mg/dL (1.6-2.3); SGOT/AST 23 u/l (9-36); SODIUM 127 mmol/l (137-146); TOTAL PROTEIN 6.5 g/dL (6.3-8.2)
[2022-11-11 05:58] LABS: ANION GAP 9 (6-22 (CALC)); BILIRUBIN, TOTAL 0.2 mg/dL (0.02-1.3); POTASSIUM 3.5 mmol/l (3.5-5.1)
[2022-11-12] VITALS (7 sets, daily range): BP systolic 152–177; BP diastolic 61–83
[2022-11-12 05:38] LABS: BASO% 0.3 % (0-3); EOS% 1.2 % (0-8); HEMATOCRIT 32.9 % (37.0-47.0); HEMOGLOBIN 10.3 g/dl (12.0-16.0); IMMATURE GRANULOCYTES 2.5 % (0.0-5.0); LYMPH% 10.1 % (15-41); MEAN CELL VOLUME 78.7 fL CALC (80.0-100.0); MEAN CORPUSCULAR HGB 24.6 pG CALC (26.0-32.0); MEAN CORPUSCULAR HGB CONC 31.3 g/dL CAL (32.0-36.0); MONO% 6.2 % (2-13); NEUT# 11.62 thou/uL (2.00-7.15); NEUT% 79.7 % (42-76); RED BLOOD COUNT 4.18 mill/uL (4.20-5.60)
[2022-11-12 05:55] LABS: ALBUMIN 3.5 g/dL (3.2-5.0); ALKALINE PHOSPHATASE 96 u/l (38-126); ANION GAP 9 (6-22 (CALC)); BUN 7 mg/dL (8-23); BUN/CREATININE RATIO 13 (12-20 (CALC)); CARBON DIOXIDE 28 mmol/l (22-30); CHLORIDE 95 mmol/l (95-108); CREATININE 0.5 mg/dL (0.5-1.0); GFR FOR AFR.AMER. > 60 ML/MIN (>=60 (CALC)); GFR OTHER RACES > 60 ML/MIN (>=60 (CALC)); MAGNESIUM 2.1 mg/dL (1.6-2.3); SGOT/AST 22 u/l (9-36); SODIUM 128 mmol/l (137-146); TOTAL PROTEIN 6.2 g/dL (6.3-8.2)
[2022-11-12 05:57] LABS: BILIRUBIN, TOTAL 0.1 mg/dL (0.02-1.3)
[2022-11-13 02:17] VITALS: BP 173/63
[2022-11-13 04:24] VITALS: BP 171/74
[2022-11-13 05:22] LABS: BASO% 0.4 % (0-3); EOS% 0.5 % (0-8); HEMATOCRIT 33.2 % (37.0-47.0); HEMOGLOBIN 10.6 g/dl (12.0-16.0); IMMATURE GRANULOCYTES 1.9 % (0.0-5.0); LYMPH% 8.5 % (15-41); MEAN CELL VOLUME 78.3 fL CALC (80.0-100.0); MEAN CORPUSCULAR HGB CONC 31.9 g/dL CAL (32.0-36.0); MONO% 6.8 % (2-13); NEUT# 12.76 thou/uL (2.00-7.15); NEUT% 81.9 % (42-76); RED BLOOD COUNT 4.24 mill/uL (4.20-5.60); RED CELL DISTRI WIDTH 14.1 % (11.5-15.5)
[2022-11-13 05:40] LABS: ALBUMIN 3.7 g/dL (3.2-5.0); ALKALINE PHOSPHATASE 103 u/l (38-126); ANION GAP 11 (6-22 (CALC)); BUN 6 mg/dL (8-23); BUN/CREATININE RATIO 13 (12-20 (CALC)); CARBON DIOXIDE 27 mmol/l (22-30); CHLORIDE 94 mmol/l (95-108); CREATININE 0.4 mg/dL (0.5-1.0); GFR FOR AFR.AMER. > 60 ML/MIN (>=60 (CALC)); GFR OTHER RACES > 60 ML/MIN (>=60 (CALC)); POTASSIUM 2.9 mmol/l (3.5-5.1); SGOT/AST 24 u/l (9-36); SODIUM 129 mmol/l (137-146); TOTAL PROTEIN 6.5 g/dL (6.3-8.2)
[2022-11-13 05:41] LABS: BILIRUBIN, TOTAL 0.2 mg/dL (0.02-1.3)
[2022-11-13 07:38] VITALS: BP 170/74
[2022-11-13 16:15] VITALS: BP 174/70
[2022-11-13 19:41] VITALS: BP 156/73
[2022-11-14 00:11] VITALS: BP 147/61
[2022-11-14 04:22] VITALS: BP 144/63
[2022-11-14 05:47] LABS: BASO% 0.6 % (0-3); EOS% 1.2 % (0-8); HEMOGLOBIN 9.9 g/dl (12.0-16.0); IMMATURE GRANULOCYTES 1.4 % (0.0-5.0); LYMPH% 12.4 % (15-41); MEAN CELL VOLUME 78.7 fL CALC (80.0-100.0); MEAN CORPUSCULAR HGB 25.1 pG CALC (26.0-32.0); MEAN CORPUSCULAR HGB CONC 31.9 g/dL CAL (32.0-36.0); MONO% 7.4 % (2-13); NEUT# 10.3 thou/uL (2.00-7.15); RED BLOOD COUNT 3.94 mill/uL (4.20-5.60); RED CELL DISTRI WIDTH 14.3 % (11.5-15.5)
[2022-11-14 05:50] LABS: ALBUMIN 3.4 g/dL (3.2-5.0); ALKALINE PHOSPHATASE 99 u/l (38-126); ANION GAP 11 (6-22 (CALC)); BILIRUBIN, TOTAL 0.2 mg/dL (0.02-1.3); BUN 9 mg/dL (8-23); BUN/CREATININE RATIO 16 (12-20 (CALC)); CARBON DIOXIDE 25 mmol/l (22-30); CHLORIDE 95 mmol/l (95-108); CREATININE 0.5 mg/dL (0.5-1.0); GFR FOR AFR.AMER. > 60 ML/MIN (>=60 (CALC)); GFR OTHER RACES > 60 ML/MIN (>=60 (CALC)); SGOT/AST 21 u/l (9-36); SODIUM 127 mmol/l (137-146); TOTAL PROTEIN 5.7 g/dL (6.3-8.2)
[2022-11-14 05:52] LABS: POTASSIUM 3.7 mmol/l (3.5-5.1)
[2022-11-14 07:05] VITALS: BP 150/66
[2022-11-14] MEDS ORDERED: LEVOFLOXACIN500MG PO (08:21)
[2022-11-14] MEDS ORDERED: LORTAB5 PO (08:21)
[2022-11-14] MEDS ORDERED: CLONAZEPAM0.5 M1 PO (08:21)
[2022-11-14 10:50] VITALS: BP 145/56
== END 2022-11-14 11:24 ==
LOC: ED 10:08 → ED-I 14:11 → MS2 14:27 → ED 14:27 → MS2 11-14 11:24
PROVIDERS: Family Medicine; Nurse Practitioner Family; ADMIT Internal Medicine; ATTEND Internal Medicine
DX: K59.01 Slow transit constipation (principal); E87.1 Hypo-osmolality and hyponatremia; E87.6 Hypokalemia; N30.00 Acute cystitis without hematuria; B96.89 Other specified bacterial agents as the cause of diseases classified elsewhere; S32.010A Wedge compression fracture of first lumbar vertebra, initial encounter for closed fracture; I10 Essential (primary) hypertension; E03.9 Hypothyroidism, unspecified; J44.9 Chronic obstructive pulmonary disease, unspecified; I42.9 Cardiomyopathy, unspecified; K21.9 Gastro-esophageal reflux disease without esophagitis; F32.A Depression, unspecified; F41.9 Anxiety disorder, unspecified; F17.200 Nicotine dependence, unspecified, uncomplicated; W19.XXXA Unspecified fall, initial encounter; Y92.009 Unspecified place in unspecified non-institutional (private) residence as the place of occurrence of the external cause; Z91.81 History of falling; Z86.73 Personal history of transient ischemic attack (TIA), and cerebral infarction without residual deficits; Z20.822 Contact with and (suspected) exposure to COVID-19

== ENCOUNTER 2024-02-29 03:50 | Inpatient (IN) | payer MEDICARE ==
[~2024-02-29] VITALS: Ht 152.4 cm; Wt 58.0 kg
[2024-02-29] VITALS (27 sets, daily range): BP systolic 119–184; BP diastolic 57–136
[~2024-02-29 03:50] MED LIST changes: +ABILIFY2 MG PO; +AMLODIPINE BESY10 MG PO; +BUSPAR15 M1 PO; +CVS IBUPROFEN200 M3; +LEVOFLOXACIN500MG PO; +OMEPRAZOLE20 MG PO; +ONDANSETRON ODT8 MG PO; +PREVACID15 M1 PO; +PROAIR HFA IN; +ZOLOFT25 MG PO; +[UNRECOGNIZED DRUG - REMARK]
--- NOTE | 2024-02-29 03:50 | NUR ---
PT TO ER BED 6 FOR TRIAGE AT THIS TIME VIA EMS STRETCHER IN NO APPARENT DISTRESS. CALL LIGHT WITHIN REACH AND PT AWAITING EDP EXAM.
[2024-02-29] MEDS ORDERED: Pantoprazole Sodium 40 MG VIAL (Protonix) IV STA (04:05)
[2024-02-29] MEDS ORDERED: SODIUM CHLORIDE 0.9% 1,000 ML IV STA (04:05)
[2024-02-29] MEDS ORDERED: clonazePAM 0.5 MG/TAB PO ONE (04:10)
[2024-02-29] MEDS ORDERED: PROMETHAZINE HCL 25 MG/ML AMP IV ONE (04:10)
--- NOTE | 2024-02-29 04:51 | NUR ---
PT SITTING IN RM AWAITING RESULTS AT THIS TIME. CALL LIGHT WITHIN REACH AND PT HAS NO NEEDS OR CONCERNS AT THIS TIME.
[2024-02-29 05:27] LABS: BASO% 0.4 % (0-3); EOS% 0.6 % (0-8); HEMATOCRIT 31.7 % (37.0-47.0); IMMATURE GRANULOCYTES 1.3 % (0.0-5.0); LYMPH% 11.4 % (15-41); MEAN CORPUSCULAR HGB 29.6 pG CALC (26.0-32.0); MEAN CORPUSCULAR HGB CONC 31.5 g/dL CAL (32.0-36.0); MONO% 8.8 % (2-13); NEUT# 6.1 thou/uL (2.00-7.15); NEUT% 77.5 % (42-76); RED BLOOD COUNT 3.38 mill/uL (4.20-5.60); RED CELL DISTRI WIDTH 14.4 % (11.5-15.5)
[2024-02-29 05:31] LABS: MEAN CELL VOLUME 93.8 fL CALC (80.0-100.0)
[2024-02-29 05:38] LABS: URINE GLUCOSE - DIPSTICK 100 mg/dL (NEGATIVE); URINE KETONE Trace mg/dL (NEGATIVE); URINE PROTEIN - DIPSTICK 30 mg/dL (NEG-TRACE)
[2024-02-29 05:42] LABS: URINE BLOOD DIPSTICK Negative (NEGATIVE); URINE COLOR Orange; URINE LEUK ESTERASE Large (NEGATIVE); URINE NITRITE - DIPSTICK Positive (Negative)
[2024-02-29 05:43] LABS: URINE BACTERIA MANY hpf; URINE EPITHELIAL CELLS FEW EPI/hpf (0-FEW); URINE WBC 20-50 WBC/hpf (0-5)
--- NOTE | 2024-02-29 05:46 | NUR ---
PT SITTING IN RM AWAITING RESULTS AT THIS TIME. CALL LIGHT WITHIN REACH AND PT HAS NO NEEDS OR CONCERNS AT THIS TIME.
[2024-02-29 05:48] LABS: CREATININE 0.6 mg/dL (0.5-1.0)
[2024-02-29 05:56] LABS: ALBUMIN 4.5 g/dL (3.2-5.0); POTASSIUM 2.4 mmol/l (3.5-5.1); TOTAL PROTEIN 7.3 g/dL (6.3-8.2)
[2024-02-29] MEDS ORDERED: POTASSIUM CHLORIDE 20 MEQ/TAB PO ONE (06:00)
[2024-02-29] MEDS ORDERED: POTASSIUM CHLORIDE 20MEQ 100 ML IV ONE (06:00)
[2024-02-29] MEDS ORDERED: SODIUM CHLORIDE 0.9% 1,000 ML IV ONE (06:00)
[2024-02-29] MEDS ORDERED: PROMETHAZINE HY25 M1 PO (06:32)
[2024-02-29] MEDS ORDERED: POTASSIUM CHLO20 ME1 PO (06:32)
--- NOTE | 2024-02-29 06:51 | NUR ---
PT SITTING IN RM AWAITING RESULTS AT THIS TIME. CALL LIGHT WITHIN REACH AND PT HAS NO NEEDS OR CONCERNS AT THIS TIME.
--- NOTE | 2024-02-29 07:06 | NUR ---
REPORT GIVEN TO JULIA BABIN AND CARE RELINQUISHED AT THIS TIME.
[2024-02-29] MEDS ORDERED: MAGNESIUM SULFATE HEPTAHYDRATE 50 ML IV ONE (07:10)
[2024-02-29] MEDS ORDERED: Levofloxacin 750 mg Premix 150 ML IV ONE (07:15)
--- NOTE | 2024-02-29 07:25 | NUR ---
ASSUMED CARE OF PATIENT. PATIENT STS THAT HER NAUSEA IMPROVED AFTER THE PHERNEGAN. STS THAT DR. MORSE INFORMED HER THAT SHE WILL BE ADMITTED. PATIENT INFORMED THAT SHE WILL NEED IV MAGNESIUM BUT IT WILL START AFTER THE POTASSIUM IS COMPLETED. PATIENT GAVE VERBAL UNDERSTANDING.
--- NOTE | 2024-02-29 07:40 | NUR ---
PATIENT TO CT
--- NOTE | 2024-02-29 07:59 | NUR ---
PATIENT HAS RETURNED FROM CT
--- NOTE | 2024-02-29 08:10 | NUR ---
CHANGED PATIENTS BRIEF. PUT A CLEAN GOWN. ATTACHED PURE WICK.
--- NOTE | 2024-02-29 08:31 | NUR ---
UNSUCCESSFUL ATTEMPTS TO ESTABLISH A SECOND IV. PATIENT HAD 1100ML OF URINE OUTPUT, LYNN IN COLOR.
[2024-02-29] MEDS ORDERED: MAGNESIUM HYDROXIDE 30 ML UDC PO PRN (08:45)
[2024-02-29] MEDS ORDERED: ACETAMINOPHEN 325 MG/TAB PO PRN (08:45)
[2024-02-29] MEDS ORDERED: SODIUM CHLORIDE 0.9% 1,000 ML IV PRN (08:45)
[2024-02-29] MEDS ORDERED: ONDANSETRON HCl 4 MG/2 ML SDV IV PRN (09:55)
[2024-02-29] MEDS ORDERED: clonazePAM 0.5 MG/TAB PO PRN (09:55)
[2024-02-29] MEDS ORDERED: GABAPENTIN 300 MG/CAP PO PRN (09:55)
--- NOTE | 2024-02-29 10:09 | NUR ---
PATIENT ADMITTED FROM ED TO ROOM 273. PATIENT A&OX4 AND ABLE TO MAKE NEEDS KNOWN. PATIENT ABDOMEN SOFT AND NONTENDER, RESPIRATIONS EVEN ND UNLABORED, PEDAL PULSES PRESENT. PATIENT ORIENTED TO ROOM, CALL LIGHT, AND SURROUNDINGS. PATIENT RECEIVING MAGNESIUM FROM ED. PATIENT UNABLE TO AMBULATE INDEPENDENTLY. PATIENT DENIES ANY NEEDS AT THIS TIME. BED AT LOWEST LEVEL, TOP 2 SIDERAILS UP, AND CALL LIGHT WITHIN REACH. WILL CONTINUE TO MONITOR.
--- NOTE | 2024-02-29 10:15 | NUR ---
PATIENT HAD ANOTHER 700ML OF LYNN URINE OUTPUT
[2024-02-29] MEDS ORDERED: SERTRALINE HCL 25 MG/TAB PO SCH (10:30)
--- NOTE | 2024-02-29 12:00 | NUR ---
PATIENT SITTING UP IN BED HAVING LUNCH. PATIENT DENIES ANY NEEDS AT THIS TIME. WILL CONTINUE TO MONITOR.
[2024-02-29] MEDS ORDERED: busPIRone HCL 5 MG/TAB PO SCH (15:00)
--- NOTE | 2024-02-29 16:04 | NUR ---
PATIENT LAYING IN BED WITH EYES CLOSED BUT EASILY AROUSED. PATIENT DENIES ANY NEEDS AT THIS TIME. WILL CONTINUE TO MONITOR.
[2024-02-29] MEDS ORDERED: PROMETHAZINE HCL 25 MG/ML AMP IV PRN (17:00)
--- NOTE | 2024-02-29 19:36 | NUR ---
RECEIVED REPORT FROM PREVIOUS NURSE, PATIENT IS CURRENTLY IN BED RESTING. CALL LIGHT IS WITHIN RECAH. NO COMPLAINTS OF PAIN AT THIS TIME.
[2024-02-29] MEDS ORDERED: ENOXAPARIN SODIUM 40 MG/0.4 ML SYR SC SCH (21:00)
--- NOTE | 2024-02-29 23:15 | NUR ---
PT IS CLEANED AND MEDICATED. PT IS CURRENTLY RESTING IN BED WITH CALL LIGHT IN REACH.
[2024-03-01] VITALS (17 sets, daily range): BP systolic 123–176; BP diastolic 69–83
--- NOTE | 2024-03-01 04:25 | NUR ---
PATIENT IS CURRENTLY RESTING IN BED WITH CALL LIGHT WITHIN REACH
[2024-03-01] MEDS ORDERED: LEVOTHYROXINE SODIUM 112 MCG/TAB PO SCH (06:00)
[2024-03-01] MEDS ORDERED: LEVOTHYROXINE SODIUM 25 MCG/TAB PO SCH (06:00)
[2024-03-01 06:08] LABS: BILIRUBIN, TOTAL 0.9 mg/dL (0.02-1.3); CREATININE 0.7 mg/dL (0.5-1.0); MAGNESIUM 2.2 mg/dL (1.6-2.3); POTASSIUM 3.1 mmol/l (3.5-5.1); TOTAL PROTEIN 6.4 g/dL (6.3-8.2)
--- NOTE | 2024-03-01 06:38 | NUR ---
PROVIDER MADE AWARE OF LAB VALUES. PT EDUCATED ABOUT NPO ORDER. PT IS CURRENTLY IN BED WATCHING TELEVISION. CALL LIGHT IS WITHIN REACH.
[2024-03-01 06:55] LABS: HEMATOCRIT 30.3 % (37.0-47.0); HEMOGLOBIN 9.7 g/dl (12.0-16.0); MEAN CELL VOLUME 96.2 fL CALC (80.0-100.0); MEAN CORPUSCULAR HGB 30.8 pG CALC (26.0-32.0); RED BLOOD COUNT 3.15 mill/uL (4.20-5.60)
--- NOTE | 2024-03-01 07:30 | NUR ---
Report received from swimming coach nurse. Patient is resting in bed, c/o headache and states she is having a panic attack. Patient appears calm. Patient has PRN anxiety meds, will give. Patient also c/o that her IV is hurting, appears to be infiltrated. Removed and new IV started. Plan for patient to have procedure done today however she said she has not spoke to MD yet. Explained that MD will talk to her and inform her about procedure before she goes down. Patient is A&Ox4, on room air. VS WNL, NSR on tele monitor. All needs addressed at this time, call light within reach.
[2024-03-01] MEDS ORDERED: POTASSIUM CHLORIDE 20MEQ 100 ML IV SCH (08:00)
[2024-03-01] MEDS ORDERED: Pantoprazole Sodium 40 MG VIAL (Protonix) IV SCH (09:00)
[2024-03-01] MEDS ORDERED: amLODIPine BESYLATE 5 MG/TAB PO SCH (09:00)
--- NOTE | 2024-03-01 10:43 | NUR ---
Spoke with OR nurse, informed her that patient states that no one has talked to her about the procedure. They are going to come and get patient.
[2024-03-01] MEDS ORDERED: ISOSORBIDE MONONITRATE 30 MG TAB PO SCH (14:30)
--- NOTE | 2024-03-01 15:44 | NUR ---
PATIENT RETURNED FROM THE OR. AXO X 4. ON ROOM AIR. DENIES ANY PAIN. VSS. ALL NEEDS ADDRESSED. CALL LIGHT IN REACH.
--- NOTE | 2024-03-01 16:00 | NUR ---
PATIENT SITTING UP IN BED. ON ROOM AIR. AXO X4. ALL NEEDS MET. DAUGHTER AT BEDSIDE. CALL LIGHT IN REACH. VSS.
[2024-03-01] MEDS ORDERED: GLYCOPYRROLATE 0.2 MG/ML IV ONE (17:01)
[2024-03-01] MEDS ORDERED: PROPOFOL 500 MG/50 ML VIAL IV ONE (17:01)
[2024-03-01] MEDS ORDERED: LIDOCAINE HCL 2% 2ML SDV IV ONE (17:01)
--- NOTE | 2024-03-01 19:25 | NUR ---
PATIENT IN BED RESTING WITH EYES CLOSED. BED SIDE REPORT COMPLETED. PUPIL 3 BRISK. STRONG EQUAL PULSE IN EXTREMITYS. BOWEL SOUND PRESENT IN ALL 4 QUADRENTS. EQUAL STRENTH IN ALL EXTREMITYS. CAN MAKE NEEDS KNOWN, NONE NEEDED AT THIS TIME. BED IN LOWEST POSITION, CALL LIGHT WITHIN REACH.
--- NOTE | 2024-03-01 20:10 | NUR ---
PATIENT IN BED ASLEEP ON LEFT SIDE. NO VISUAL SIGNS OF DISTRESS. RESPONDS TO VERBAL STIMULI CAN MAKE NEEDS KNOWN. BED AT LOWEST POSITION, CALL LIGHT WITH IN REACH.
[2024-03-02] VITALS (10 sets, daily range): BP systolic 140–176; BP diastolic 67–83
--- NOTE | 2024-03-02 00:26 | NUR ---
PATIENT ASLEEP IN BED, EYES CLOSED. NO VISUAL SIGNS OF DISTRESS, CAN MAKE NEEDS KNOWN. BED AT LOWEST POSITION, CALL LIGHT WITH IN REACH.
[2024-03-02 02:17] LABS: BASO% 0.9 % (0-3); EOS% 2.3 % (0-8); HEMATOCRIT 25.3 % (37.0-47.0); HEMOGLOBIN 8.1 g/dl (12.0-16.0); IMMATURE GRANULOCYTES 1.1 % (0.0-5.0); LYMPH% 24.2 % (15-41); MEAN CELL VOLUME 96.9 fL CALC (80.0-100.0); MONO% 8.9 % (2-13); NEUT# 4.06 thou/uL (2.00-7.15); NEUT% 62.6 % (42-76); RED BLOOD COUNT 2.61 mill/uL (4.20-5.60); RED CELL DISTRI WIDTH 15.1 % (11.5-15.5)
[2024-03-02 02:32] LABS: ALBUMIN 3.2 g/dL (3.2-5.0); CREATININE 0.6 mg/dL (0.5-1.0); MAGNESIUM 1.9 mg/dL (1.6-2.3); POTASSIUM 3.2 mmol/l (3.5-5.1); TOTAL PROTEIN 5.4 g/dL (6.3-8.2)
[2024-03-02 02:33] LABS: BILIRUBIN, TOTAL 0.5 mg/dL (0.02-1.3)
--- NOTE | 2024-03-02 04:16 | NUR ---
PATIENT IN BED ASLEEP ON LEFT SIDE EYES CLOSED . RESPONDS TO VERBAL STIMULI. CAN MAKE NEEDS KNOWN. BED AT LOWEST POSITION. CALL LIGHT WITH IN REACH.
--- NOTE | 2024-03-02 07:05 | NUR ---
REPORT RECEIVED FROM DOREENRN
--- NOTE | 2024-03-02 08:10 | NUR ---
PT RESTING IN SEMI FOWLERS POSITION,A&O X3;ASSESSMENT COMPLETED;PT DENIES ANY CURRENT PAIN OR DISCOMFORTS,PAIN SCALE AND REPORTING EDUCATED;PT MEDICATED WITH PRN KLONOPIN 0.5MG PO PER REQUEST;RESPIRATIONS EVEN AND UNLABORED ON RA,CLEAR LUNG SOUNDS;ABDOMEN SOFT ON PALPATION AND ACTIVE IN ALL 4 QUADRANTS;PUREWICK CATHETER IN PLACE;STRONG PEDAL PULSES;BRUISE TO RIGHT BUTTOCK, SKIN OTHERWISE INTACT;TELE MONITORING IN PLACE;#22 TO RFA INFUSING NS @100ML/HR,SITE APPEARS HEALTHY;PT DENIES ANY ADDITIONAL NEEDS AND IS ENCOURAGED TO CALL FOR ASSISTANCE IF NEEDED;FALL PRECAUTIONS REMAIN IN PLACE WITH BED IN THE LOWEST POSITION AND CALL LIGHT IN REACH;FREQUENT ROUNDS MADE.
[2024-03-02] MEDS ORDERED: POTASSIUM CHLORIDE 20MEQ 100 ML IV SCH (08:30)
--- NOTE | 2024-03-02 09:25 | NUR ---
PT MEDICATED WITH PRN TYLENOL 650MG PO FOR HEADACHE AND PRN PHENERGAN 12.5MG SLOW IVP FOR FOR NAUSEA PER REQUEST;FREQUENT ROUNDS MADE.
--- NOTE | 2024-03-02 09:45 | NUR ---
LAB AT BEDSIDE
[2024-03-02 10:04] LABS: HEMATOCRIT 28.2 % (37.0-47.0); HEMOGLOBIN 8.8 g/dl (12.0-16.0)
[2024-03-02] MEDS ORDERED: PREVACID30 M1 PO (10:45)
[2024-03-02] MEDS ORDERED: Levofloxacin 750 mg Premix 150 ML IV SCH (11:00)
--- NOTE | 2024-03-02 11:25 | NUR ---
PT RESTING IN SEMI FOWLERS POSITION;RESPIRATIONS EVEN AND UNLABORED ON RA;PT DENIES ANY CURRENT PAIN OR NEEDS;IV SITE PATENT INFUSING NS PER ORDER AND ABX STARTED AT THIS TIME;TELE MONITORING IN PLACE;PUREWICK DRAINING WITH EASE;ENCOURAGED TO CALL FOR ASSISTANCE IF NEEDED;CALL LIGHT IN REACH;FREQUENT ROUNDS MADE.
--- NOTE | 2024-03-02 15:45 | NUR ---
PT RESTING IN SEMI FOWLERS POSITION;RESPIRATIONS EVEN AND UNLABORED ON RA;PT DENIES ANY CURRENT PAIN OR DISCOMFORTS;TELE MONITORING IN PLACE;IV SITE REMAINS PATENT INFUSING NS WITH EASE;ALL SAFETY PRECAUTIONS REMAIN IN PLACE WITH CALL LIGHT IN REACH;FREQUENT ROUNDS MADE.
--- NOTE | 2024-03-02 17:34 | NUR ---
PT MEDICATED WITH PRN TYLENOL 650MG PO FOR HEADACHE PAIN AND PHENERGAN 12.5MG SLOW IVP FOR NAUSEA PER REQUEST.
--- NOTE | 2024-03-02 20:12 | NUR ---
RECEIVED REPORT FROM [employer] NURSE LISA MORALES. PT NOTED LAYING IN BED PORTILLO PENG, RM AIR. PT IS A/OX3, C/O PAIN IN BACK. DID OFFER PT HEATING PACK FOR COMFORT, PT DECLINED. STATING "SWITCHING POSITIONS HELPS IT." PT DENIES ANY NAUSEA OR VOMITTING AT THIS TIME, NURSING ASSESSMENT COMPLETED. TELE MONITOR IN PLACE, IV SITE APEARS HEALTHY AND INTACT. PT DID REQUEST ANXIETY KLONOPIN WITH NIGHT TIME MEDICAITONS. EDUCATED PT ON PLAN OF CARE AND MED SCHEDULE FOR TONIGHT. CALL LIGHT WITHIN REACH AND SAFETY PRECAUTIONS IN PLACE.
[2024-03-03] VITALS: BP 163/78
--- NOTE | 2024-03-03 | NUR ---
PT LAYING IN BED ON RT SIDE, RESTING COMFORTABLY AT THIS TIME. NO S/S OF DISTRESS. CALL LIGHT WITHIN REACH AND SAFETY PRECAUTIONS IN PLACE.
[2024-03-03 04:00] VITALS: BP 146/82
[2024-03-03 04:42] VITALS: BP 146/82
--- NOTE | 2024-03-03 04:44 | NUR ---
PT SITTING UP SEMI FOWELRS IN BED, REQUESTING ICE WATER. DENIES ANY PAIN, N/V AT THIS TIME. NO S/S OF DISTRESS. ICE WATER GIVEN. CALL LIGHT WITHIN REACH AND SAFETY PRECAUTIONS IN PLACE.
[2024-03-03 05:00] LABS: BASO% 0.9 % (0-3); EOS% 2.7 % (0-8); IMMATURE GRANULOCYTES 0.9 % (0.0-5.0); LYMPH% 22.7 % (15-41); MEAN CELL VOLUME 97.2 fL CALC (80.0-100.0); MEAN CORPUSCULAR HGB 31.3 pG CALC (26.0-32.0); MEAN CORPUSCULAR HGB CONC 32.1 g/dL CAL (32.0-36.0); MONO% 8.8 % (2-13); NEUT# 3.58 thou/uL (2.00-7.15); RED BLOOD COUNT 2.88 mill/uL (4.20-5.60); RED CELL DISTRI WIDTH 14.7 % (11.5-15.5)
[2024-03-03 05:16] LABS: ALBUMIN 3.3 g/dL (3.2-5.0); ALKALINE PHOSPHATASE 45 u/l (38-126); ANION GAP 7 (6-22 (CALC)); BILIRUBIN, TOTAL 0.5 mg/dL (0.02-1.3); CARBON DIOXIDE 23 mmol/l (22-30); CHLORIDE 109 mmol/l (95-108); CREATININE 0.6 mg/dL (0.5-1.0); ESTIMATED GFR 98 ML/MIN (>=90 (CALC)); MAGNESIUM 1.8 mg/dL (1.6-2.3); POTASSIUM 3.3 mmol/l (3.5-5.1); SGOT/AST 19 u/l (9-36); SODIUM 135 mmol/l (137-146); TOTAL PROTEIN 5.6 g/dL (6.3-8.2)
[2024-03-03 05:18] LABS: BUN < 2 mg/dL (8-23)
[2024-03-03 05:20] LABS: BUN/CREATININE RATIO < 3 (12-20 (CALC))
[2024-03-03 06:54] VITALS: BP 152/81
[2024-03-03] MEDS ORDERED: POTASSIUM CHLORIDE 20 MEQ/TAB PO SCH (07:00)
--- NOTE | 2024-03-03 08:00 | NUR ---
REPORT RECEIVED FROM NIGHT JULIA. CESAR Ornelas. S1S2 NOTED, PULSES STRONG. LUNGS CLEAR, NO SOB OR COUGH. SINUS TACH ON TELE, HR 112. BOWEL SOUNDS ACTIVE. PATIENT STATES SHE IS TOLERATING BREAKFAST WELL.
[2024-03-03] MEDS ORDERED: CIPROFLOXACIN 250 MG/TAB PO SCH (09:00)
[2024-03-03] MEDS ORDERED: PROMETHAZINE HY25 M1 PO (09:08)
[2024-03-03] MEDS ORDERED: CIPROFLOXACIN250 MG PO (09:09)
[2024-03-03 10:25] VITALS: BP 141/78
--- NOTE | 2024-03-03 12:00 | NUR ---
PATIENT LAYING IN BED RESTING. ALL NEEDS MET. CALL LIGHT IN REACH. VSS.
--- NOTE | 2024-03-03 15:15 | NUR ---
Discharge instructions given. Patient verbalizes understanding of them. Discharged in stable condition via Wheelchair to Home with family per family request. All belongings sent with pt. IV removed.
== END 2024-03-03 15:03 | disposition home or self-care (01) | DRG 392 ==
LOC: ED 03:50 → ED-I 08:32 → ED 08:45 → MS2 08:46
PROVIDERS: Family Medicine; Student in an Organized Health Care Education/Training Program; ADMIT Internal Medicine; ATTEND Internal Medicine
PROC: 0D738ZZ Dilation of Lower Esophagus, Via Natural or Artificial Opening Endoscopic (ICD-10-PCS; principal; 2024-03-01)
DX: K22.2 Esophageal obstruction (principal); E87.1 Hypo-osmolality and hyponatremia; N30.00 Acute cystitis without hematuria; B96.20 Unspecified Escherichia coli [E. coli] as the cause of diseases classified elsewhere; E87.6 Hypokalemia; E86.0 Dehydration; K44.9 Diaphragmatic hernia without obstruction or gangrene; A08.4 Viral intestinal infection, unspecified; I10 Essential (primary) hypertension; J44.9 Chronic obstructive pulmonary disease, unspecified; E03.9 Hypothyroidism, unspecified; K21.9 Gastro-esophageal reflux disease without esophagitis; F32.A Depression, unspecified; F41.9 Anxiety disorder, unspecified; F17.200 Nicotine dependence, unspecified, uncomplicated; Z86.73 Personal history of transient ischemic attack (TIA), and cerebral infarction without residual deficits; Z88.0 Allergy status to penicillin; Z20.822 Contact with and (suspected) exposure to COVID-19
CPT/HCPCS: J1650; J2470; J3475; Q9967